=== PATIENT | female | born 1990 | race Caucasian/White ===

== ENCOUNTER → 2017-12-27 16:28 | Outpatient (CLI) | payer BC, OTHER, SELFPAY ==
--- NOTE | 2017-12-27 16:33 | XR_ITS ---
XR wrist RT min 3V HISTORY wrist pain ITS.REASON: ganglion cyst ORDERING PHYSICIAN: Kirit Jordan MD PATIENT AGE: 27 years Comparison: None FINDINGS: No fracture or dislocation. No lytic or blastic change. There is normal mineralization.. The joint spaces are well-preserved. No significant degenerative/arthritic changes. No erosive changes evident.. IMPRESSION: Negative wrist
== END ==
PROVIDERS: PCP Family Medicine; Visit Provider Orthopaedic Surgery
DX: M67.431 Ganglion, right wrist (principal)
CPT/HCPCS: 73110

== ENCOUNTER 2020-03-15 19:54 | Emergency (ER) | payer BC, SELFPAY ==
[2020-03-15 20:00] VITALS: BP 116/86; PULSE 88; RESP 19; TEMP 36.9; O2SAT 99; BMI 27.4
[2020-03-15 20:09] VITALS: BP 116/86; PULSE 88; RESP 19; TEMP 36.9; O2SAT 99
--- NOTE | 2020-03-15 20:15 | HMH.EDUTC ---
[facility] [place] Clinical Impression: Encounter for laboratory testing for COVID-19 virus Disposition: Home, Self-Care Condition on Discharge: Good Instructions: DI for COVID-19 (Suspected or Confirmed ), Coronavirus Disease 2019, Preventing the Spread of Coronavirus Discharge Instructions Additional Instructions: *Monitor Temp, Over the counter Motrin or Tylenol as directed/as needed Tylenol every 4 hours and Motrin every 6 hours (as long as your family doctor has told you that you can take it) for fever or pain. and straight to ER if unable to lower temp less than 101.0 after medication given Take medication as prescribed Follow up IMMEDIATELY for new or worsening symptoms or no Noticeable improvement over the next 48-72 hours. 911 for difficulty breathing or swallowing You were tested for today for COVID19 your test result should be back in the next 24-48 hours, you may call to the [facility] to see if your test results are back in the next 48 hours [phone] [facility] hours are 9am-9pm You was given a handout with instructions for Self Quarantine and Self isolation for while you wait on test results and what to do if they are positive If you are positive the Health Dept will be contacting you also Prescriptions: Azithromycin [Z-Matthias 250mg Tab] 250 mg PO DIRECTED #6 tab Transmission Status: Pending to [facility] Referrals: Charles Powers MD [Primary Care Provider] - As needed Time of Disposition: 20:20 Medical Decision Making - Stefano Inquiry Pt receiving controlled substance: No Stefano was queried for this patient: No Vital Signs: 03/15/20 20:00 Temperature 98.4 F Temperature Source Oral Pulse Rate [Right Brachial] 88 Respiratory Rate 19 Blood Pressure [Right Arm] 116/86 Blood Pressure Mean [Right Arm] 96 Blood Pressure Source [Right Arm] Automatic Cuff Blood Pressure Position [Right Arm] Sitting 02 Sat by Pulse Oximetry 99 Oxygen Delivery Method Room Air Orders (Tests/Meds): ORDERS Category Date Time Status Covid-19 Nasal PCR ([facility]) Routine Lab 03/15/20 19:57 Ordered [facility] [place] HPI - General Stated complaint: Covid 19 Test Time Seen by Provider: 03/15/20 20:15 Mode of Arrival: Ambulatory Source of Information: Patient Limitations: No Limitations Description of Symptoms (Recalled from Triage Doc. by RN): PATIENT REQUESTING COVID TEST. C/O SINUS PRESSURE, CONGESTION, AND NO SMELL X 1 WEEK. STATES HER CHILDREN WERE EXPOSED TO COVID AT [facility] Symptoms (Recalled from RN notes): Yes Resp Symptoms (Recalled from RN notes): No Skin Symptoms (Recalled from RN notes): No MS Symptoms (Recalled from RN notes): No Functional Status (Recalled from RN notes): WNL - History of Present Illness Provider Complaint: Patient states that she has been having sinus pain and pressure for over a week States that she thought she may have been getting a sinus infection states that she noticed earlier when she was changing a diaper that she was not able to smell anything States that she has not been exposed to COVID that she is aware of but her children was - Related Data Home Medications Medication Instructions Recorded Confirmed doxycycline hyclate 100 mg capsule 100 mg PO DAILY 11/03/18 11/03/18 Previous Rx's Medication Instructions Recorded Mupirocin [Bactroban 2% Ointment 1 applicatio TP TID 7 Days #1 tube 10/31/18 22gm tube] clindamycin HCL [Clindamycin HCl 300 mg PO Q6 10 Days #40 cap 10/31/18 300mg Cap] ciprofloxacin HCl 500 mg tablet 500 mg PO BID 5 Days #10 tab 03/12/19 Azithromycin [Z-Matthias 250mg Tab] 250 mg PO DIRECTED #6 tab 03/15/20 Allergies Allergy/AdvReac Type Severity Reaction Status Date / Time Sulfa (Sulfonamide Allergy Mild Verified 11/03/18 09:55 Antibiotics) [SULFA (SULFONAMIDE ANTIBIOTICS)] - Worker's Comp Is this a Worker's Comp case?: No H History - Hepatitis A Screen Drug use history?: No High risk sexual behav
--- NOTE | 2020-03-16 16:29 | PC.NURSE ---
NOTIFIED OF POSITIVE COVID TEST AT THIS TIME
== END 2020-03-15 20:19 | disposition home or self-care (01) ==
PROVIDERS: Emergency Provider Nurse Practitioner; PCP Family Medicine
DX: U07.1 COVID-19 (principal); Z88.2 Allergy status to sulfonamides
CPT/HCPCS: 99202; G0463; U0003

== ENCOUNTER → 2020-08-28 10:07 | Outpatient (CLI) | payer BC, SELFPAY ==
[2020-08-28 10:27] LABS: Basophils # 0.1 K/mm3 (0-0.2); Basophils % 0.9 % (0.1-2.0); Eosinophils # 0.1 K/mm3 (0.0-0.4); Hematocrit 36.2 % (37.0-47.0); Hemoglobin 12.2 g/dL (12.2-16.2); Mean Corpuscular HGB Conc 33.6 g/dL (31.8-35.4); Mean Corpuscular Hemoglobin 29.5 pg (27.0-31.2); Mean Corpuscular Volume 87.8 fl (81-99); Mean Platelet Volume 7.6 fl (7.4-10.4); Monocytes # 0.4 K/mm3 (0.1-1.0); Monocytes % 5.9 % (1.7-9.3); Neutrophils # 4.7 K/mm3 (1.8-7.8); Neutrophils % 64.2 % (37.0-80.0); Platelet Count 275 K/mm3 (142-424); Red Blood Count 4.12 M/mm3 (4.20-5.40); Red Cell Distribution Width 12.7 % (11.5-17.5); White Blood Count 7.3 K/mm3 (4.8-10.8)
[2020-08-28 11:08] LABS: Chloride 106 mmol/L (98-107); Potassium 5.1 mmoL/L (3.5-5.1); Sodium 141 mmol/L (136-145)
[2020-08-28 11:10] LABS: Alanine Aminotransferase 15 U/L (12-78); Aspartate Amino Transferase 19 U/L (14-36); Blood Urea Nitrogen 6 mg/dl (7-17); Estimated Glomerular Filt Rate 119 ml/min (>60); GFR (African American) 144 ML/MIN (>60)
[2020-08-28 11:11] LABS: Albumin Level 4.2 g/dl (3.5-5.0); Albumin/Globulin Ratio 1.6 (1.1-1.8); Alkaline Phosphatase 85 U/L (38-126); Anion Gap 12.1 mEq/L (5-15); Bilirubin,Total 0.5 mg/dl (0.2-1.3); Calcium 9.5 mg/dl (8.4-10.2); Carbon Dioxide 28 mmol/L (22.0-30.0); Globulin 2.7 g/dL (1.3-3.2); Glucose 95 mg/dl (74-100); Lipase 37 U/L (23-300); Total Protein,Serum 6.9 g/dl (6.3-8.2)
== END ==
PROVIDERS: Visit Provider Internal Medicine Adolescent Medicine
DX: R10.11 Right upper quadrant pain (principal)
CPT/HCPCS: 36415; 80053; 83690; 85025

== ENCOUNTER → 2020-08-29 08:42 | Outpatient (CLI) | payer BC, SELFPAY ==
--- NOTE | 2020-08-29 08:46 | US_ITS ---
PROCEDURE: US ABDOMEN LIMITED CLINICAL INDICATION: RUQ PAIN COMPARISON: US RUQ US RUQ-(ABD LTD)1ORGAN/QUAD/FU from 07/25/2015 FINDINGS: PANCREAS: Unremarkable. No obvious mass or abnormal fluid collection. 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 The larger lesion is septated. There is appropriate direction of blood flow within a non dilated portal vein. RIGHT KIDNEY: Unremarkable. Normal size and echogenicity. No hydronephrosis GALLBLADDER: No gallstones, gallbladder wall thickening, pericholecystic fluid, or biliary dilatation. IMPRESSION: Unremarkable gallbladder ultrasound. Hepatic cysts Dictated by: Nathan Zhang MD 08/29/2020 15:40 Nathan Zhang MD in [place] 08/29/2020 15:40
== END ==
PROVIDERS: PCP Internal Medicine Adolescent Medicine; Visit Provider Internal Medicine Adolescent Medicine
DX: R10.11 Right upper quadrant pain (principal)
CPT/HCPCS: 76705

== ENCOUNTER 2022-03-07 13:47 | Emergency (ER) | payer BC, SELFPAY ==
--- NOTE | 2022-03-07 14:17 | EXP.UTC ---
Discharge Plan Disposition Patient Disposition: Home, Self-Care Condition: Good Prescriptions Prescriptions: New diphenhydramine HCl [Diphenhydramine HCl] 25 mg capsule 25 mg PO Q6HP PRN (Reason: Itching) Qty: 30 0RF loratadine 10 mg tablet 10 mg PO DAILY Qty: 30 0RF No Action norgestimate-ethinyl estradiol 0.25-35 mg-mcg tablet 1 tab PO amoxicillin 500 mg capsule 500 mg PO Q12H 10 Days Qty: 20 0RF ondansetron 8 mg tablet,disintegrating 8 mg PO Q8H PRN (Reason: nausea and vomiting) Qty: 30 0RF Referrals Follow up/Referrals: Charles Negron MD [Primary Care Provider] - See instructions Activity Restrictions/Add. Instructions Additional Instructions/Restrictions: Drink plenty of fluids. Take tylenol for pain or fever. Follow up with your regular doctor. GO TO THE ER FOR ANY WORSENING SYMPTOMS Clinical Impressions Clinical Impression: Bronchitis Qualifiers: Weeks of gestation: 40 weeks Qualified Code(s): Z3A.40 - 40 weeks gestation of Instructions Patient Instructions: DI for Acute Bronchitis, Diphenhydramine Discharge ED Provider: Luis F Avendaño [facility] General Stated complaint: Cough Time Seen by Provider: 03/07/22 14:17 History of Present Illness Provider Complaint: She is here requesting something to help her cough. She denies that she feels bad. She states that she has had a productive cough with clear sputum for the past several days that is keeping her awake at night. Related Data Home Medications Medication Instructions Recorded Confirmed norgestimate 0.25 mg-ethinyl 1 tab PO 07/14/20 01/09/21 estradiol 35 mcg tablet Previous Rx's Medication Instructions Recorded amoxicillin 500 mg capsule 500 mg PO Q12H otitis media 10 01/09/21 days #20 caps ondansetron 8 mg disintegrating 8 mg PO Q8H PRN nausea and 07/23/21 tablet vomiting #30 tabs diphenhydramine HCl 25 mg capsule 25 mg PO Q6HP PRN Itching #30 caps 03/07/22 loratadine 10 mg tablet 10 mg PO DAILY #30 tabs 03/07/22 Allergies Allergy/AdvReac Type Severity Reaction Status Date / Time Sulfa (Sulfonamide Allergy Mild Verified 01/09/21 17:51 Antibiotics) [SULFA (SULFONAMIDE ANTIBIOTICS)] [facility] Disclaimer: The information contained in this section may have been updated after the patient was seen, as this information can be updated by other users. Medical History Hypertension Urinary tract infection Surgical History History of section Social History Smoking Status: Never smoker alcohol intake: current current occupational status: other Travel in the last 8 weeks: None ROS Obtained: Yes All systems reviewed & no additional complaints except as documented Constitutional Constitutional: Denies chills and Denies fever(s) Eyes Eyes: Denies eye discharge ENT Ears, Nose, Mouth, and Throat: Denies dizziness, Denies otalgia, Reports nasal congestion, Reports sinus pressure and Denies sore throat Cardiovascular Cardiovascular: Denies chest pain Respiratory Respiratory: Reports as per HPI, Denies shortness of breath, Reports chest congestion, Reports cough, Denies stridor and Denies wheezing Gastrointestinal Gastrointestingal: Denies abdominal pain, nausea or vomiting Musculoskeletal Musculoskeletal: Reports system reviewed and no additional complaints, except as documented and Denies arthralgias Integumentary/Breasts Skin/Breast: Denies rash Neurologic Neurologic: Denies dizziness and Denies paresthesias Allergic/Immunologic Allergic/Immunologic: Denies wheezing Physical Exam General General appearance: alert and in no apparent distress Head Head exam: atraumatic, normocephalic and normal inspection Eye Eye exam: Present normal appearance, PERRL and EOMI ENT E
[2022-03-07 14:25] VITALS: BP 140/81; PULSE 94; RESP 20; TEMP 36.5; O2SAT 97; BMI 34.9
[2022-03-07 15:10] VITALS: BP 140/81; PULSE 94; RESP 20; TEMP 36.5; O2SAT 97
== END 2022-03-07 15:13 | disposition home or self-care (01) ==
PROVIDERS: Emergency Provider Nurse Practitioner Family; PCP Internal Medicine Adolescent Medicine
DX: O26.893 Other specified pregnancy related conditions, third trimester (principal); J40 Bronchitis, not specified as acute or chronic; Z3A.40 40 weeks gestation of pregnancy
CPT/HCPCS: 99212; 99213; G0463

== ENCOUNTER 2023-02-04 16:10 | Emergency (ER) | payer BC, SELFPAY ==
--- OUTSIDE RECORDS SUMMARY | 2023-02-04 16:13 | XMS_ITS | Patient Health Record ---
Author Name Unknown Organization [facility] Address [address] [place] [address] Care Team Providers Care Case Monitor Name Role Phone Irma Norton Unavailable [phone] MariannaNichol mas Unavailable [phone] Results Component Value Reference Range Notes CBC (NO DIFF) Reviewed date:03/09/2022 12:03:56 PM Interpretation: Performing Lab: Notes/Report: WBC, CORRECTED 8.88 3.40-10.80 10*3/mm3 ERYTHROCYTES IN BLOOD BY AUTOMATED COUNT 3.94 3.77-5.28 10*6/mm3 HEMOGLOBIN (G/DL) IN BLOOD 11.0 12.0-15.9 g/dL HEMATOCRIT (%) BY AUTOMATED COUNT 33.7 34.0-46.6 % RBC MCV (FL) BY AUTOMATED COUNT 85.5 79.0-97.0 fL RBC MCH (PG) BY AUTOMATED COUNT 27.9 26.6-33.0 pg RBC MCHC (G/DL) BY AUTOMATED COUNT 32.6 31.5-35.7 g/dL RBC RDW (%) BY AUTOMATED COUNT 13.2 12.3-15.4 % RDW-SD 40.5 37.0-54.0 fl MEAN PLATELET VOLUME (FL) BY AUTOMATED COUNT 10.6 6.0-12.0 fL PLATELETS BY AUTOMATED COUNT 224 140-450 10*3/mm3 [address] [place] [address] Test Performed by [facility] PRE-ECLAMPSIA PANEL Reviewe
--- NOTE | 2023-02-04 16:28 | EXP.UTC ---
Discharge Plan Disposition Patient Disposition: Home, Self-Care Condition: Good Prescriptions Prescriptions: New amoxicillin [amoxicillin] 875 mg tablet 875 mg PO Q12H Qty: 20 0RF benzonatate [benzonatate] 100 mg capsule 100 mg PO TIDP PRN (Reason: Cough) Qty: 30 0RF methylprednisolone 4 mg Tablets,Dose Pack 4 mg PO DIRECTED Qty: 21 0RF guaifenesin [Mucinex] 600 mg tablet extended release 12hr 600 - 1,200 mg PO BIDP PRN (Reason: Congestion) Qty: 30 0RF No Action norgestimate-ethinyl estradiol 0.25-35 mg-mcg tablet 1 tab PO DAILY loratadine 10 mg tablet 10 mg PO DAILY Qty: 30 0RF Referrals Follow up/Referrals: Charles Negron MD [Primary Care Provider] - See instructions Activity Restrictions/Add. Instructions Additional Instructions/Restrictions: Drink plenty of fluids. Take tylenol or ibuprofen for pain or fever. Take the medications as directed. Follow up with your regular doctor. GO TO THE ER FOR ANY WORSENING SYMPTOMS Clinical Impressions Clinical Impression: Bronchitis, Otitis media Instructions Patient Instructions: Acute Bronchitis, DI for Acute Bronchitis Discharge ED Provider: Luis F Avendaño [facility] General Stated complaint: cough, ear ache Time Seen by Provider: 02/04/23 16:28 History of Present Illness Provider Complaint: She states that for the past 5 days she has bilateral ear pain, sinus congestion, sore throat, and chest congestion. Related Data Home Medications Medication Instructions Recorded Confirmed norgestimate 0.25 mg-ethinyl 1 tab PO DAILY 07/14/20 02/04/23 estradiol 35 mcg tablet Previous Rx's Medication Instructions Recorded loratadine 10 mg tablet 10 mg PO DAILY #30 tabs 03/07/22 amoxicillin 875 mg tablet 875 mg PO Q12H #20 tabs 02/04/23 benzonatate 100 mg capsule 100 mg PO TIDP PRN Cough #30 caps 02/04/23 guaifenesin 600 mg tablet, 600 - 1,200 mg PO BIDP PRN 02/04/23 extended release 12 hr (Mucinex) Congestion #30 tabs methylprednisolone 4 mg tablets in 4 mg PO DIRECTED #21 tabs 02/04/23 a dose pack Allergies Allergy/AdvReac Type Severity Reaction Status Date / Time Sulfa (Sulfonamide Allergy Mild Verified 02/04/23 17:01 Antibiotics) [SULFA (SULFONAMIDE ANTIBIOTICS)] [facility] Disclaimer: The information contained in this section may have been updated after the patient was seen, as this information can be updated by other users. Medical History Hypertension Urinary tract infection Surgical History History of section Social History Smoking Status: Never smoker alcohol intake: current current occupational status: other Travel in the last 8 weeks: None ROS Obtained: Yes All systems reviewed & no additional complaints except as documented Constitutional Constitutional: Reports poor appetite Eyes Eyes: Reports system reviewed and no additional complaints, except as documented ENT Ears, Nose, Mouth, and Throat: Reports as per HPI Cardiovascular Cardiovascular: Reports system reviewed and no additional complaints, except as documented and Denies chest pain Respiratory Respiratory: Denies shortness of breath, Reports chest congestion, Reports cough, Denies stridor and Denies wheezing Gastrointestinal Gastrointestingal: Reports system reviewed and no additional complaints, except as documented; Denies abdominal pain, diarrhea or vomiting Musculoskeletal Musculoskeletal: Reports system reviewed and no additional complaints, except as documented and Denies arthralgias Integumentary/Breasts Skin/Breast: Reports system reviewed and no additional complaints, except as documented and Denies rash Neurologic Neurologic: Denies paresthesias Allergic/Immunologic Allergic/Immunologic: Denies wheezing Physical Exam G
[2023-02-04 16:30] VITALS: BP 146/90; PULSE 79; RESP 18; TEMP 36.7; O2SAT 100; BMI 33.6
[2023-02-04 17:35] VITALS: BP 146/90; PULSE 79; RESP 18; TEMP 36.7; O2SAT 100
== END 2023-02-04 17:35 | disposition home or self-care (01) ==
PROVIDERS: Emergency Provider Nurse Practitioner Family; PCP Internal Medicine Adolescent Medicine
DX: J20.9 Acute bronchitis, unspecified (principal); H66.93 Otitis media, unspecified, bilateral; R50.9 Fever, unspecified; R07.0 Pain in throat; R09.89 Other specified symptoms and signs involving the circulatory and respiratory systems; R09.81 Nasal congestion; R05.9 Cough, unspecified; I10 Essential (primary) hypertension
CPT/HCPCS: 99212; 99214; G0463

== ENCOUNTER 2023-03-09 17:18 | Outpatient (CLI) | payer BC, SELFPAY ==
--- NOTE | 2023-03-09 | XR_ITS ---
PROCEDURE INFORMATION: Exam: XR Right Ribs with PA Chest Exam date and time: 03/09/2023 5:21 PM Age: 32 years old Clinical indication: Chest wall pain; Right; Additional info: Cough, right sided chest pain TECHNIQUE: Imaging protocol: Radiologic exam of the right ribs with PA chest. Views: 3 views COMPARISON: No relevant prior studies available. FINDINGS: Lungs: Unremarkable. No consolidation. Pleural spaces: Unremarkable. No pleural effusion. No pneumothorax. Heart/Mediastinum: Unremarkable. No cardiomegaly. Bones/joints: No displaced rib fracture. IMPRESSION: 1. No acute findings. 2. No displaced rib fracture.
== END 2023-03-09 23:59 ==
LOC: RAD 17:21
PROVIDERS: PCP Internal Medicine Adolescent Medicine; Visit Provider Nurse Practitioner Family
DX: R05.3 Chronic cough (principal); R07.89 Other chest pain
CPT/HCPCS: 71101

== ENCOUNTER 2024-07-30 09:36 | Inpatient (IN) | payer BC, SELFPAY ==
[2024-07-30 09:47] LABS: Appearance,Urine CLOUDY (Clear); Blood, Urine TRACE-L (Negative); Color,Urine YELLOW (Yellow); Glucose,Urine (UA) Negative (Negative); Ketones,Urine Negative (Negative); Leukocyte Esterase,Urine Negative (Negative); Microscopic, Urine URINE MICROSCOPIC (MICROSCOPIC); Nitrate,Urine Negative (Negative); Protein,Urine Negative (Negative); Specific Gravity, Urine 1.015 (1.005-1.030)
[2024-07-30 09:50] VITALS: BP 122/81; PULSE 81; O2SAT 100
--- NOTE | 2024-07-30 09:52 | ED_ITS ---
Discharge Plan Disposition Patient Disposition: Admitted Discharge ED Provider: Cullen Brownlee General Adult HPI General Chief complaint: Abdominal Pain Stated complaint: right abd pain up to R.shoulder gallbladder hist. Time Seen by Provider: 07/30/24 09:38 History of Present Illness HPI narrative: Patient is a 34-year-old female with no chronic comorbidities section x 2 abdominal surgical history presents emerged part for evaluation of right upper quadrant abdominal pain. She has had episodes of this before however the most recent timeline is subacute over the last for several weeks. She has had intermittent right upper quadrant abdominal pain radiating through to her shoulder blade with associated nausea. It is worse with taking in a deep breath. The frequency has increased over the last couple of weeks and last night her typical regimen is applying heat pad did not improve her pain at all. It is currently moderate to severe in intensity right upper quadrant causing her to present here for continued evaluation. Please note that above description of symptoms, in this electronic medical record under categorization of recalled from ER triage doctor by RN are reflective of an initial nursing assessment, however, is not reflective of my full history and physical exam that was personally taken and clarified. Consequentially, this preceding description of symptoms, which may include the patient's categorized chief complaint in the EMR, do not reflect my personal clinical impression, and the ultimate description of history of present illness and patient stated complaints should be deferred to this section of the note. Unless stated otherwise or congruent with this section of the note, additional signs, symptoms, or incongruence should be interpreted as inaccurate with my clinical impression. Related Data Home Medications ?Medication ?Instructions ?Recorded ?Confirmed tirzepatide (weight loss) 5 mg/0.5 5 mg SQ WEEKLY 07/30/24 07/30/24 mL subcutaneous pen injector (Zepbound) Allergies Allergy/AdvReac Type Severity Reaction Status Date / Time Sulfa (Sulfonamide Allergy Mild Swelling Verified 07/30/24 10:07 Antibiotics) (SULFA of (SULFONAMIDE ANTIBIOTICS)) Lip/Tongue/Throat [facility] Disclaimer: The information contained in this section may have been updated after the patient was seen, as this information can be updated by other users. Medical History Urinary tract infection Hypertension Surgical History (Updated 07/30/24 @ 10:06 by Marita Cantor RN) History of tubal ligation History of section Social History (Updated 07/30/24 @ 12:16 by Radha Tello RN) Smoking Status: Never smoker alcohol intake: current alcohol intake frequency: holidays/special occasions only current occupational status: employed Travel in the last 8 weeks?: None Have you lived/traveled outside US in past 30 days?: No Contact w/someone who lives/traveled outside US past 30 days?: No Exposure to someone with infectious disease in past 14 days?: No Do you have a fever (greater than 100.4 F or 38 C)?: No Have you tested positive for COVID-19?: No Exposed to someone with COVID-19 in past 14 days?: No Do you have a sore throat?: No Do you have a cough?: No Do you have any weakness?: No Are you experiencing any nausea/vomitting?: No Do you have any diarrhea?: No Are you experiencing any unusual bleeding?: No Do you have any muscle aches/pain?: No Do you have any abdominal pain?: Yes Are you experiencing loss of taste or smell?: No Other Medical History Have you received the Flu Vaccine for this season: No Have you received the Pneumonia Vaccine: No ROS Obtained: Yes Systems reviewed as appropriate & no additional complaints except as documented Physical Exam General General appearance: alert and in no apparent distress Head Head exam: atraumatic and normocephalic Eye Eye exam: Present PERRL and EOMI ENT ENT exam: Present mucous membranes moist Neck Neck exam: Present normal inspection Chest Chest inspection: Present normal inspection and symmetric chest wall rise Respiratory Respiratory exam: Present normal lung sounds bilaterally; Absent respiratory distress Cardiovascular Cardiovascular exam: Present regular rate and normal rhythm Abdominal Exam Abdominal exam: Present soft and tenderness (Right upper quadrant) Extremities Exam Extremities exam: Present normal inspection Neurological Exam Neurological exam: Present alert Psychiatric Psychiatric exam: Present normal affect Skin Skin exam: Present warm and dry Medical Decision Making Medical Records Screening: Per USPSTF and CDC recommendations, given the prevalence of disease in our region, it is our hospital?s policy to screen for HIV and viral Hepatitis for all patients aged 18 and over and those with ongoing risk factors. Stefano Inquiry Pt receiving controlled substance: No Vital Signs: 07/30/24 09:50 07/30/24 10:00 07/30/24 10:00 Temperature 97.7 F Temperature Source Oral Pulse Rate 81 78 Pulse Rate [Right Brachial] 79 Respiratory Rate 18 Blood Pressure 122/81 Blood Pressure [Right Arm] 122/81 Blood Pressure Mean [Right Arm] 94 02 Sat by Pulse Oximetry 100 100 100 Oxygen Delivery Method Room Air 07/30/24 12:02 Temperature 97.7 F Temperature Source Pulse Rate 79 Pulse Rate [Right Brachial] Respiratory Rate 18 Blood Pressure 122/81 Blood Pressure [Right Arm] Blood Pressure Mean [Right Arm] 02 Sat by Pulse Oximetry Oxygen Delivery Method Room Air Lab Data Lab Results 07/30/24 09:43: Urine Color Yellow, Urine Appearance Cloudy, Urine pH 6.0, Ur Specific [place] 1.015, Urine Protein Negative, Urine Glucose (UA) Negative, Urine Ketones Negative, Urine Blood Trace-l, Urine Nitrate Negative, Urine Bilirubin 1+ A, Urine Urobilinogen 1.0, Ur Leukocyte Esterase Negative, Urine RBC Occasional, Urine WBC None, Ur Squamous Epith Cells 50-100, Urine Bacteria 2+ 07/30/24 09:53: WBC 6.2, RBC 4.16 L, Hgb 12.8, Hct 36.1 L, MCV 86.8, MCH 30.8, M CHC 35.5 H, RDW 13.0, Plt Count 244, MPV 10.1, Neut % (Auto) 72.4, Lymph % (Auto) 18.3, [place] % (Auto) 7.1, Eos % (Auto) 1.6, Baso % (Auto) 0.3, Neut # (Auto) 4.5, Lymph # (Auto) 1.1, [place] # (Auto) 0.4, Eos # (Auto) 0.1, Baso # (Auto) 0.0, Sodium 140, Potassium 4.2, Chloride 108 H, Carbon Dioxide 27, Anion Gap 9.2, BUN 7, Creatinine 0.50 L, Estimated Creat Clear 202, Estimated GFR 143, Est GFR ( Amer) 173, Glucose 104 H, Calcium 8.8, Total Bilirubin 1.8 H, D irect Bilirubin 1.1 H, AST 614 H*, ALT 576 H*, Alkaline Phosphatase 180 H, Troponin I < 0.01, Total Protein 6.4, Albumin 4.2, Globulin 2.2, A lbumin/Globulin Ratio 1.9 H, Triglycerides 87, Cholesterol 134 L, LDL Cholesterol Direct 62.81 L, VLDL Cholesterol 17, HDL Cholesterol 44, Cholesterol/HDL Ratio 3.0, Lipase 93084 H, Serum HCG, Qual Negative 07/30/24 09:53 07/30/24 09:53 Orders (Tests/Meds): ED MEDICATIONS Generic Name Dose Route Start Last Admin Trade Name María Elena PRN Reason Stop Dose Admin Acetaminophen 650 mg 07/30/24 11:23 Acetaminophen 325mg Tab PO 08/29/24 11:22 Q4HP PRN Fever or Mild Pain (1-3) Lactated Ringer's 1,000 mls @ 100 mls/hr 07/30/24 11:30 Lactated Ringer's 1000 Ml Bag IV 08/29/24 11:29 .Q10H EDIE Ketorolac Tromethamine 30 mg 07/30/24 11:23 Ketorolac 30mg/Ml Vial IV 08/04/24 11:22 Q6HP PRN Moderate Pain (4-6) Morphine Sulfate 2 mg 07/30/24 11:23 Morphine 2mg/Ml Syringe IV 08/29/24 11:22 Q2HP PRN Moderate Pain (4-6) Morphine Sulfate 4 mg 07/30/24 11:29 Morphine 4mg/Ml Syringe IV 08/29/24 11:28 Q4HP PRN Severe Pain (7-10) Ondansetron HCl 4 mg 07/30/24 11:23 Ondansetron 4mg/2ml Vial IV 08/29/24 11:22 Q8HP PRN Nausea Sodium Chloride 10 ml 07/30/24 10:34 07/30/24 10:34 Sodium Chloride 0.9% 10ml Syr (Rad Only) IV 08/29/24 10:33 10 ml NEEDED PRN Administration Maintain IV Site Discontinued Medications Generic Name Dose Route Start Last Admin Trade Name María Elena PRN Reason Stop Dose Admin Piperacillin Sod/Tazobactam 100 mls @ 200 mls/hr 07/30/24 11:22 07/30/24 11:23 Sod 4.5 gm/ Sodium Chloride IV 07/30/24 11:51 200 mls/hr ONCE ONE Administration Iopamidol 75 ml 07/30/24 10:34 07/30/24 10:34 Iopamidol-370 (76%);100ml Bottle IV 07/30/24 10:35 75 ml ONCE ONE Administration Ketorolac Tromethamine 30 mg 07/30/24 09:51 07/30/24 09:57 Ketorolac 30mg/Ml Vial IV 07/30/24 09:52 30 mg ONCE ONE Administration Morphine Sulfate 4 mg 07/30/24 09:51 07/30/24 11:35 Morphine 4mg/Ml Syringe IV 07/30/24 09:52 Not Given ONCE ONE Ondansetron HCl 4 mg 07/30/24 09:51 07/30/24 09:57 Ondansetron 4mg/2ml Vial IV 07/30/24 09:52 4 mg ONCE ONE Administration ORDERS Category Date Time Status CT abdomen pelvis w con Stat Cat Scan 07/30/24 09:52 Completed GI consult [Consult to Gastroenterology] [CONS] Routine Cons 07/30/24 10:20 Active General Surgery Consult [Consult to General Surgery] [ Cons 07/31/24 07:10 Ordered CONS] Routine POCUS Point of Care (ER Only) Stat Exams 07/30/24 09:40 Completed Bilirubin,Direct Stat Lab 07/30/24 09:53 Completed CBC w/Auto Diff [Complete Blood Count Auto Diff] Stat Lab 07/30/24 09:53 Completed CMP [Comprehensive Metabolic Panel] Stat Lab 07/30/24 09:53 Completed Complete Blood Count Auto Diff AMLAB Lab 07/31/24 06:00 Ordered Complete Blood Count Auto Diff AMLAB Lab 08/01/24 06:00 Ordered Complete Blood Count Auto Diff AMLAB Lab 08/02/24 06:00 Ordered Complete Blood Count Auto Diff AMLAB Lab 08/03/24 06:00 Ordered Complete Blood Count Auto Diff AMLAB Lab 08/04/24 06:00 Ordered Comprehensive Metabolic Panel AMLAB Lab 07/31/24 06:00 Ordered Comprehensive Metabolic Panel AMLAB Lab 08/01/24 06:00 Ordered Comprehensive Metabolic Panel AMLAB Lab 08/02/24 06:00 Ordered Comprehensive Metabolic Panel AMLAB Lab 08/03/24 06:00 Ordered Comprehensive Metabolic Panel AMLAB Lab 08/04/24 06:00 Ordered HCG Qualitative, Serum Stat Lab 07/30/24 09:53 Completed HIV Combo Routine Lab 07/30/24 09:53 Received Hepatitis C Ab Qual. W/ RFX Routine Lab 07/30/24 09:53 Received Lipase Stat Lab 07/30/24 09:53 Completed Lipid Panel Routine Lab 07/30/24 09:53 Completed Magnesium AMLAB Lab 07/31/24 06:00 Ordered Magnesium AMLAB Lab 08/01/24 06:00 Ordered Magnesium AMLAB Lab 08/02/24 06:00 Ordered Magnesium AMLAB Lab 08/03/24 06:00 Ordered Magnesium AMLAB Lab 08/04/24 06:00 Ordered Trop I [Troponin I] Stat Lab 07/30/24 09:53 Completed UA [Urinalysis and Microscopic] Stat Lab 07/30/24 09:43 Completed Urine Culture Stat Micro 07/30/24 09:43 Received ECG Data Tracing #1: Independently interpreted by me rate is 66, rhythm is regular, axis is normal, no ST elevation in anatomical contiguous leads, QTc 410. Medical Decision Narrative: In summary patient is a 34-year-old female past medical history described above presents emerged part for evaluation of right upper quadrant abdominal pain. Patient is hemodynamically stable and nontoxic-appearing upon arrival, afebrile with tenderness in the right upper quadrant. My concern for hepatobiliary pathology is high. [id number] ultrasound at bedside does not show overt pericholecystic fluid however there does appear to be some sludge in the gallbladder and most importantly common bile duct is dilated significantly greater than 6 mm. Differential diagnosis includes choledocholithiasis, compressive lesion, pancreatitis, among others. Workup will be conducted with hematologic labs, urinalysis, EKG, CT abdomen pelvis IV contrast. Initial interventions include multimodal pain control. Hematologic labs reviewed by me is no significant leukocytosis or anemia, no BUCK. There is transaminitis, direct hyperbilirubinemia, significant elevation of lipase consistent with gallstone pancreatitis. No concern for sepsis currently and patient is largely euvolemic so full sepsis fluids will not be administered. Given this patient was started on Zosyn and the case was discussed with GI regarding management they will likely undergo ERCP tomorrow. Case discussed with hospital medicine regarding management they will meet the patient their service for continued evaluation at this time. Indication: Abdominal pain Identified structures: -Gallbladder -Gallbladder wall -Common bile duct -Liver Findings: Sonographic Sarabia sign: Present Sludge present Pericholecystic fluid: Absent Maximal GB wall thickness (3 mm): [normal is </= 3mm] [Normal/abnormal] Common bile duct width (mm): Greater than 6 mm abnormal Impression: Concern for choledocholithiasis Images were saved to permanent archive The study was technically adequate CPT 97797-55 This study was performed by me, and I personally interpreted all images/videos. Based on my clinical judgement, these images were adequate and did necessitate further imaging. Critical Care Critical Care Time Critical Care Time: Yes Attestation: On 07/30/24, the high probability of a clinically significant, sudden or life threatening deterioration of the following system(s) required my full and direct attention, intervention and personal management. The time I documented below is in addition to time spent performing reported procedures but includes the following listed in this critical care notation. Total Time Total Critical Care Time: 35
--- NOTE | 2024-07-30 09:52 | CT_ITS ---
PROCEDURE INFORMATION: Exam: CT Abdomen And Pelvis With Contrast Exam date and time: 07/30/2024 10:28 AM Age: 34 years old Clinical indication: Abdominal pain; Localized; Right upper quadrant (ruq); Prior surgery; Surgery date: 6+ months; Surgery type: 2 c-sections; Additional info: Dilated cbd on pocus, ruq pain TECHNIQUE: Imaging protocol: Computed tomography of the abdomen and pelvis with contrast. Radiation optimization: All CT scans at this facility use at least one of these dose optimization techniques: automated exposure control; mA and/or kV adjustment per patient size (includes targeted exams where dose is matched to clinical indication); or iterative reconstruction. Contrast material: ISOVUE; Contrast volume: 75 ml; Contrast route: IV; COMPARISON: US ABDOMEN LIMITED 08/29/2020 9:21 AM FINDINGS: Liver: Cystic lesions in the left lobe of the liver Gallbladder and biliary ducts: Distended gallbladder. No pericholecystic fluid. Pancreas: Mild pancreatic edema. Spleen: Normal. No splenomegaly. Adrenal glands: Normal. No mass. Kidneys and ureters: Normal. No hydronephrosis. Stomach and bowel: Unremarkable. No obstruction. No mucosal thickening. Appendix: No evidence of appendicitis. Intraperitoneal space: Unremarkable. No free air. No significant fluid collection. Vasculature: Unremarkable. No abdominal aortic aneurysm. Lymph nodes: Unremarkable. No enlarged lymph nodes. Urinary bladder: Unremarkable as visualized. Reproductive: Unremarkable as visualized. Bones/joints: Unremarkable. No acute fracture. Soft tissues: Unremarkable. IMPRESSION: Gallbladder distension with pericholecystic fluid. No visible stones are appreciated. Findings are suspicious for acute gallbladder disease. In addition there appears to be edema of the pancreatic tail. Pancreatitis not excluded. Cystic lesions in the left lobe of the liver.
[2024-07-30 09:56] LABS: Bacteria,Urine 2+ /lpf; Bilirubin,Urine 1+ (Negative); RBC,Urine Occasional #/hpf (0-3); Squamous Epithelial Cell,Urine 50-100 #/hpf (0-5)
[2024-07-30] MEDS: ONDANSETRON 4MG/2ML VIAL 4 MG IV (09:57)
[2024-07-30] MEDS: KETOROLAC 30MG/ML VIAL 30 MG IV ×2 (09:57→19:38)
[2024-07-30 09:59] LABS: Basophils % 0.3 % (0.1-2.0); Eosinophils # 0.1 Kmm3 (0.0-0.4); Eosinophils % 1.6 % (0.1-12.0); Hematocrit 36.1 % (37.0-47.0); Hemoglobin 12.8 g/dL (12.2-16.2); Immature Granulocytes # 0.02 10^3uL; Immature Granulocytes % 0.3 %; Lymphocytes # 1.1 K/mm3 (0.7-4.5); Lymphocytes % 18.3 % (10-50); Mean Corpuscular HGB Conc 35.5 g/dL (31.8-35.4); Mean Corpuscular Hemoglobin 30.8 pg (27.0-31.2); Mean Corpuscular Volume 86.8 fl (81-99); Mean Platelet Volume 10.1 fl (7.4-10.4); Monocytes # 0.4 K/mm3 (0.1-1.0); Monocytes % 7.1 % (1.7-9.3); Neutrophils # 4.5 K/mm3 (1.8-7.8); Neutrophils % 72.4 % (37.0-80.0); Nucleated Red Blood Cells # 0 10^3/uL; Nucleated Red Blood Cells % 0 %; Platelet Count 244 K/mm3 (142-424); Red Blood Count 4.16 M/mm3 (4.20-5.40); Red Cell Distribution Width-SD 40.8 fL; White Blood Count 6.2 K/mm3 (4.8-10.8)
[2024-07-30 10:00] VITALS: BP 122/81; PULSE 78; PULSE 79; RESP 18; TEMP 36.5; O2SAT 100; BMI 29.1
[2024-07-30 10:08] LABS: Bilirubin,Direct 1.1 mg/dl (0.0-0.4)
[2024-07-30 10:09] LABS: Alanine Aminotransferase 576 U/L (12-78); Albumin Level 4.2 g/dl (3.5-5.0); Albumin/Globulin Ratio 1.9 (1.1-1.8); Alkaline Phosphatase 180 U/L (38-126); Anion Gap 9.2 mEq/L (5-15); Aspartate Amino Transferase 614 U/L (14-36); Bilirubin,Total 1.8 mg/dl (0.2-1.3); Blood Urea Nitrogen 7 mg/dl (7-17); Calcium 8.8 mg/dl (8.4-10.2); Carbon Dioxide 27 mmol/L (22.0-30.0); Chloride 108 mmol/L (98-107); Creatinine Clearance Estimated 202 mL/min (50-200); Estimated Glomerular Filt Rate 143 ml/min (>60); GFR (African American) 173 ML/MIN (>60); Globulin 2.2 g/dL (1.3-3.2); Glucose 104 mg/dl (74-100); Potassium 4.2 mmoL/L (3.5-5.1); Sodium 140 mmol/L (136-145); Total Protein,Serum 6.4 g/dl (6.3-8.2)
--- NOTE | 2024-07-30 10:13 | ECG_ITS ---
APPROVED REPORT Exam: Resting ECG HR:66 bpm ECG Measurements Heart Rate 66 AXES NH 146 P 81 QRSd 92 QRS 87 QT 396 T 76 QTc 410 Conclusion SINUS RHYTHM WITH SINUS ARRHYTHMIA LOW QRS VOLTAGE IN PRECORDIAL LEADS [QRS DEFLECTION < 1.0 mV IN CHEST LEADS] Electronically signed by : MARIPOSA PONCE, 08/04/2024 12:29:46
[2024-07-30 10:19] LABS: HCG Qualitative, Serum Negative (Negative)
[2024-07-30 10:22] LABS: Troponin I < 0.01 ng/ml (0.00-0.034)
[2024-07-30] MEDS: IOPAMIDOL-370 (76%);100ML BOTTLE 75 ML IV (10:34)
[2024-07-30] MEDS: SODIUM CHLORIDE 0.9% 10ML SYR (RAD ONLY) 10 ML IV (10:34)
[2024-07-30 10:39] LABS: Lipase 14447 U/L (23-300)
[2024-07-30] MEDS: PIPERACILLIN/TAZO 4.5 GM in 0.9 % SODIUM CHLORIDE 100 ML IV (11:23)
--- NOTE | 2024-07-30 11:23 | EXP.HP ---
History of Present Illness *Admission Date: 07/30/24 *Reason for visit:: Abdominal pain *History of present illness: Phuong Correia is a 34-year-old female with no significant medical history presents with 3-week onset of intermittent RUQ abdominal pains with radiation to the right shoulder which worsened over the past day. Patient states his abdominal pains have been intermittent over the past weeks have usually self resolved, however last night it began but has not resolved and today which point patient presented to the ED. Endorses chills, but denies fevers, chest pains, diarrhea/constipation. Does endorse the fact that she was started Zepbound (GLP-1 agonist) in May 2024. Otherwise denies eating anything different, travel history, scorpion bite. Workup in the ED significant for transaminitis total bilirubin/AST/ALT/ALP 1.8/614/576/180. Lipase 14,447. WBC normal. CT abdomen/pelvis suggestive of cholecystitis and pancreatitis. ED discussed case with GI who is tentatively planning for ERCP in the morning. Case discussed with ED provider and she was made to admit patient for suspected choledocholithiasis, possible cholangitis, and pancreatitis. [facility] Disclaimer: The information contained in this section may have been updated after the patient was seen, as this information can be updated by other users. Medical History (Updated 07/30/24 @ 18:26 by Malick Francisco MD) Urinary tract infection Hypertension Surgical History (Updated 07/30/24 @ 10:06 by Marita Cantor RN) History of tubal ligation History of section Social History (Updated 07/30/24 @ 12:16 by Radha Tello RN) Smoking Status: Never smoker alcohol intake: current alcohol intake frequency: holidays/special occasions only current occupational status: employed Travel in the last 8 weeks?: None Have you lived/traveled outside US in past 30 days?: No Contact w/someone who lives/traveled outside US past 30 days?: No Exposure to someone with infectious disease in past 14 days?: No Do you have a fever (greater than 100.4 F or 38 C)?: No Have you tested positive for COVID-19?: No Exposed to someone with COVID-19 in past 14 days?: No Do you have a sore throat?: No Do you have a cough?: No Do you have any weakness?: No Are you experiencing any nausea/vomitting?: No Do you have any diarrhea?: No Are you experiencing any unusual bleeding?: No Do you have any muscle aches/pain?: No Do you have any abdominal pain?: Yes Are you experiencing loss of taste or smell?: No Other Medical History Have you received the Flu Vaccine for this season: No Have you received the Pneumonia Vaccine: No Meds Home Medications and Allergies Home Medications ?Medication ?Instructions ?Recorded ?Confirmed ?Type tirzepatide (weight loss) 5 mg/0.5 5 mg SQ WEEKLY 07/30/24 07/30/24 History mL subcutaneous pen injector ([employer]) New Prescriptions to Start Prescriptions: Allergies Allergy/AdvReac Type Severity Reaction Status Date / Time Sulfa (Sulfonamide Allergy Mild Swelling Verified 07/30/24 10:07 Antibiotics) (SULFA of (SULFONAMIDE ANTIBIOTICS)) Lip/Tongue/Throat Exam Data for Last 24 hours Vital signs and Labs for Last 24 Hours: Temp Pulse Resp BP Pulse Ox O2 Del Method 97.7 F 79 18 122/81 100 Room Air 07/30/24 10:00 07/30/24 10:00 07/30/24 10:00 07/30/24 10:00 07/30/24 10:00 07/30/24 10:00 Laboratory Results - last 24 hr 07/30/24 09:43: Urine Color Yellow, Urine Appearance Cloudy, Urine pH 6.0, Ur Specific [place] 1.015, Urine Protein Negative, Urine Glucose (UA) Negative, Urine Ketones Negative, Urine Blood Trace-l, Urine Nitrate Negative, Urine Bilirubin 1+ A, Urine Urobilinogen 1.0, Ur Leukocyte Esterase Negative, Urine RBC Occasional, Urine WBC None, Ur Squamous Epith Cells 50-100, Urine Bacteria 2+ 07/30/24 09:53: WBC 6.2, RBC 4.16 L, Hgb 12.8, Hct 36.1 L, MCV 86.8, MCH 30.8, MCHC 35.5 H, RDW 13.0, Plt Count 244, MPV 10.1, Neut % (Auto) 72.4, Lymph % (Auto) 18.3, [place] % (Auto) 7.1, Eos % (Auto) 1.6, Baso % (Auto) 0.3, Neut # (Auto) 4.5, Lymph # (Auto) 1.1, [place] # (Auto) 0.4, Eos # (Auto) 0.1, Baso # (Auto) 0.0, Sodium 140, Potassium 4.2, Chloride 108 H, Carbon Dioxide 27, Anion Gap 9.2, BUN 7, Creatinine 0.50 L, Estimated Creat Clear 202, Estimated GFR 143, Est GFR ( Amer) 173, Glucose 104 H, Calcium 8.8, Total Bilirubin 1.8 H, Direct Bilirubin 1.1 H, AST 614 H*, ALT 576 H*, Alkaline Phosphatase 180 H, Troponin I < 0.01, Total Protein 6.4, Albumin 4.2, Globulin 2.2, Albumin/Globulin Ratio 1.9 H, Lipase 85702 H, Serum HCG, Qual Negative I & O for Last 24 hours: Intake & Output 07/27/24 07/28/24 07/29/24 07/30/24 23:59 23:59 23:59 23:59 Weight 79.379 kg Constitutional Constitutional: no acute distress *Routine HEENT Exam Head: Present normocephalic Eye: Present EOMI and PERRL ENT: Present mucous membranes moist *Routine Neck Exam Neck: Present supple; Absent lymphadenopathy *Routine Respiratory Exam Respiratory: Present CTA bilaterally *Routine Cardiovascular Exam Cardiovascular: Present RRR *Routine Abdominal Exam Abdominal: Present soft, normoactive bowel sounds and tenderness Comments: RUQ abdominal tenderness to palpation. *Routine Rectal Exam Rectal:: deferred *Routine Genitalia Exam Genitalia:: deferred *Routine Extremities Exam Extremities: Absent cyanosis, clubbing or edema *Routine Skin Exam Skin: Present warm; Absent rash *Routine Neurological Exam Neurological: Present alert and oriented X3 Assessment and Plan *Assessment and plan (1) Choledocholithiasis: Status: Acute Category: Medical Code(s): K80.50 - Calculus of bile duct without cholangitis or cholecystitis without obstruction (2) Pancreatitis: Status: Acute Category: Medical Code(s): K85.90 - Acute pancreatitis without necrosis or infection, unspecified Plan Phuong Correia is a 34-year-old female with no significant medical history presents with 3-week onset of intermittent RUQ abdominal pains with radiation to the right shoulder which worsened over the past day. Patient states his abdominal pains have been intermittent over the past weeks have usually self resolved, however last night it began but has not resolved and today which point patient presented to the ED. Endorses chills, but denies fevers, chest pains, diarrhea/constipation. Does endorse the fact that she was started Zepbound (GLP-1 agonist) in May 2024. Otherwise denies eating anything different, travel history, scorpion bite. Workup in the ED significant for transaminitis total bilirubin/AST/ALT/ALP 1.8/614/576/180. Lipase 14,447. WBC normal. CT abdomen/pelvis suggestive of cholecystitis and pancreatitis. ED discussed case with GI who is tentatively planning for ERCP in the morning. Case discussed with ED provider and she was made to admit patient for suspected choledocholithiasis, possible cholangitis, and pancreatitis. #Suspected acute cholecystitis #Suspected choledocholithiasis #Possible acute cholangitis #Transaminitis #Acute pancreatitis ? Presents with 3 weeks of intermittent RUQ abdominal pains with radiation of the right shoulder, this episode not resolving on its own. Intermittent chills, but denies fevers. ? Grossly elevated LFTs on arrival total bilirubin/AST/ALT/ALP 1.8/614/576/180. Lipase 14,447. GGT 345. Lipid panel, calcium normal. WBC normal. ? No cholelithiasis identified on CT abdomen, but CBD was dilated on POCUS in the ED. ? It is very possible that a gallstone are still present in the distal CBD. ? Presentation complicated by starting of GLP-1 agonist in May 2024, likely contributing to pancreatitis. At this time, pancreatitis seems to be mostly related to underlying suspected gallstone pancreatitis. ? GI consulted in the ED, tentatively planning for ERCP in the morning. N.p.o. at midnight. ? General Surgery consulted for suspected acute cholecystitis, pending recommendations. ? Continue Zosyn empirically for cholecystitis, possible cholangitis. ? Follow-up RUQ ultrasound in the morning. ? Possible MRCP pending GI recommendations. ? Consider viral, mono panel if above workup is unremarkable. ? Follow-up with hepatitis panel. ? Continue IV LR at 100 mL/h. Full code DVT prophylaxis: Lovenox 40 mg
--- NOTE | 2024-07-30 11:40 | PC.NURSE ---
PT ADMITTED TO HOSPITALIST, ROOM 210. ALL STAFF NOTIFIED
[2024-07-30 11:43] LABS: Cholesterol 134 mg/dl (140-200); HDL Cholesterol 44 mg/dl (40-60); Triglycerides 87 mg/dl (30-150); VLDL Cholesterol 17 mg/dL (0-40)
[2024-07-30 12:00] VITALS: TEMP 36.8
[2024-07-30 12:02] VITALS: BP 122/81; PULSE 79; RESP 18; TEMP 36.5; O2SAT 100
[2024-07-30 12:02] LABS: Direct LDL Cholesterol 62.81 mg/dL (100-129)
--- NOTE | 2024-07-30 12:04 | PC.NURSE ---
arrived to floor from ED by w/c
--- NOTE | 2024-07-30 12:15 | HMH.PHAINT1 ---
Pharmacy Intervention Comments: MEDICATION RECONCILIATION COMPLETE USING EXTERNAL PHARMACY FILL HISTORY.
[2024-07-30 13:11] LABS: HIV Combo NEGATIVE (Negative)
[2024-07-30 13:14] LABS: Hepatitis C Ab Qual. W/ RFX NEGATIVE (Negative)
[2024-07-30] MEDS: MORPHINE 2MG/ML SYRINGE 2 MG IV (14:04)
[2024-07-30 15:49] LABS: Gamma Glutamyl Transpeptidase 345 U/L (12-43)
[2024-07-30 16:00] VITALS: BP 156/75; PULSE 89; RESP 22; TEMP 36.8; O2SAT 98
--- NOTE | 2024-07-30 16:03 | PC.NURSE ---
new admit today. medicated for pain x1 so far today. aox4, independent with ADL.
[2024-07-30] MEDS: PIPERCILLIN/TAZO 3.375 GM in 0.9 % SODIUM CHLORIDE 50 ML IV (19:38)
[2024-07-30 19:55] VITALS: BP 120/71; PULSE 83; RESP 18; TEMP 36.8; O2SAT 98
[2024-07-31] VITALS: BP 101/64; PULSE 68; RESP 18; TEMP 36.9; O2SAT 100
[2024-07-31] MEDS: LACTATED RINGERS 1000ML 1,000 ML 100 ML IV ×2 (00:02→10:20)
[2024-07-31] MEDS: ACETAMINOPHEN 325MG TAB 650 MG PO (00:02)
[2024-07-31 04:00] VITALS: BP 102/65; PULSE 83; RESP 15; TEMP 36.4; O2SAT 97; BMI 29.5
[2024-07-31] MEDS: PIPERCILLIN/TAZO 3.375 GM in 0.9 % SODIUM CHLORIDE 50 ML IV ×2 (04:54→11:58)
[2024-07-31 05:56] LABS: Albumin Level 3.1 g/dl (3.5-5.0); Chloride 110 mmol/L (98-107)
[2024-07-31 05:57] LABS: Potassium 3.4 mmoL/L (3.5-5.1); Sodium 139 mmol/L (136-145)
[2024-07-31 05:58] LABS: Basophils % 0.3 % (0.1-2.0); Eosinophils # 0.2 Kmm3 (0.0-0.4); Eosinophils % 2.7 % (0.1-12.0); Hematocrit 31.9 % (37.0-47.0); Immature Granulocytes # 0.02 10^3uL; Immature Granulocytes % 0.3 %; Lymphocytes # 1.6 K/mm3 (0.7-4.5); Lymphocytes % 23.2 % (10-50); Mean Corpuscular HGB Conc 34.8 g/dL (31.8-35.4); Mean Corpuscular Hemoglobin 30.2 pg (27.0-31.2); Mean Corpuscular Volume 86.9 fl (81-99); Mean Platelet Volume 10.5 fl (7.4-10.4); Monocytes # 0.6 K/mm3 (0.1-1.0); Neutrophils # 4.5 K/mm3 (1.8-7.8); Neutrophils % 65.5 % (37.0-80.0); Nucleated Red Blood Cells # 0 10^3/uL; Nucleated Red Blood Cells % 0 %; Platelet Count 210 K/mm3 (142-424); Red Blood Count 3.67 M/mm3 (4.20-5.40); Red Cell Distribution Width 12.9 % (11.5-17.5); Red Cell Distribution Width-SD 41.1 fL; White Blood Count 6.9 K/mm3 (4.8-10.8)
[2024-07-31 05:59] LABS: Alanine Aminotransferase 375 U/L (12-78); Albumin/Globulin Ratio 1.3 (1.1-1.8); Anion Gap 8.4 mEq/L (5-15); Aspartate Amino Transferase 170 U/L (14-36); Bilirubin,Total 0.9 mg/dl (0.2-1.3); Blood Urea Nitrogen 7 mg/dl (7-17); Carbon Dioxide 24 mmol/L (22.0-30.0); Creatinine Clearance Estimated 171 mL/min (50-200); Estimated Glomerular Filt Rate 116 ml/min (>60); GFR (African American) 140 ML/MIN (>60); Globulin 2.3 g/dL (1.3-3.2); Total Protein,Serum 5.4 g/dl (6.3-8.2)
[2024-07-31 06:00] LABS: Alkaline Phosphatase 158 U/L (38-126); Calcium 8.2 mg/dl (8.4-10.2); Glucose 91 mg/dl (74-100); Magnesium 1.9 mg/dl (1.6-2.3)
--- NOTE | 2024-07-31 06:00 | US_ITS ---
FINAL REPORT CLINICAL HISTORY: Distended gallbladder, pancreatitis, elevated LFTs COMPARISON: CT of the abdomen and pelvis 07/30/2024 FINDINGS: Sonographic images of the right upper quadrant were obtained. The pancreas is partially obscured.The liver demonstrates multiple foci of decreased attenuation without enhancement, measuring up to 4.2 x 2.9 cm in size, most likely hepatic cysts. There are multiple gallstones present in the gallbladder, with mild gallbladder wall thickening measuring 5 mm in thickness. There is no evidence of biliary ductal dilatation.The common duct measures 4mm. Limited images of the right kidney are unremarkable. IMPRESSION: Multiple gallstones present in the gallbladder, with mild gallbladder wall thickening measuring 5 mm in thickness. Multiple hepatic cysts. Reviewed, Interpreted and Dictated by Darryl Motley MD Transcribed by Marlee Farah Authenticated and [facility]
[2024-07-31 06:05] LABS: Hemoglobin 10.8 g/dL (12.2-16.2)
--- NOTE | 2024-07-31 06:21 | PC.NURSE ---
patient is alert and oriented x4, ambulates to and from bathroom independently, complained of pain x2 medicated per mar with favorable results, patient has been NPO since midnight, visitor at bedside, call button is in reach
--- NOTE | 2024-07-31 07:10 | P.CONS_ITS ---
History of Present Illness *Admission Date: 07/30/24 *History of present illness: Mrs. Correia is a 34-year-old female who presented with abdominal pain/biliary colic. The patient reports right upper quadrant abdominal pain that began after heavy meal 2 weeks ago on a Tuesday. She had it again the following Tuesday and then this did occur 1 week later on Tuesday and her last episode was Tuesday. Initially, this subsided after a couple of hours but her most recent episode persisted and she went to the ED. She did report right upper quadrant abdominal pain that radiated into the right shoulder. She did have some darkened urine and chills but no fever. She did have some nausea. She has been on Zepbound since May 2024. In the ED, her liver chemistries were elevated with AST 614, ALT 576, alkaline phosphatase 180 and total bilirubin 1.8. She also had a lipase level of 14,447. Her CAT scan of the abdomen and pelvis did show gallbladder distention with pericholecystic fluid consistent with acute cholecystitis. There was some edema of the pancreas consistent with interstitial pancreatitis. Her lab work today has improved and her AST declined to 170, ALT 375, alkaline phosphatase 158 and total bilirubin 0.9. The patient was placed on Zosyn on admission. Today the patient does feel remarkably better. General surgery has not yet seen the patient. CT imaging did not show bile duct dilation but the ultrasound point of care in the ED showed CBD dimension of 10 mm as reported by the reading physician. [facility] Disclaimer: The information contained in this section may have been updated after the patient was seen, as this information can be updated by other users. Medical History (Updated 07/31/24 @ 07:16 by Trace Medina II, MD) Urinary tract infection Hypertension Surgical History (Updated 07/30/24 @ 10:06 by Marita Cantor RN) History of tubal ligation History of section Social History (Updated 07/30/24 @ 12:16 by Radha Tello RN) Smoking Status: Never smoker alcohol intake: current alcohol intake frequency: holidays/special occasions only current occupational status: employed Travel in the last 8 weeks?: None Have you lived/traveled outside US in past 30 days?: No Contact w/someone who lives/traveled outside US past 30 days?: No Exposure to someone with infectious disease in past 14 days?: No Do you have a fever (greater than 100.4 F or 38 C)?: No Have you tested positive for COVID-19?: No Exposed to someone with COVID-19 in past 14 days?: No Do you have a sore throat?: No Do you have a cough?: No Do you have any weakness?: No Are you experiencing any nausea/vomitting?: No Do you have any diarrhea?: No Are you experiencing any unusual bleeding?: No Do you have any muscle aches/pain?: No Do you have any abdominal pain?: Yes Are you experiencing loss of taste or smell?: No Meds Home Medications and Allergies Home Medications ?Medication ?Instructions ?Recorded ?Confirmed ?Type tirzepatide (weight loss) 5 mg/0.5 5 mg SQ WEEKLY 07/30/24 07/30/24 History mL subcutaneous pen injector (Zepbound) New Prescriptions to Start Prescriptions: Allergies Allergy/AdvReac Type Severity Reaction Status Date / Time Sulfa (Sulfonamide Allergy Mild Swelling Verified 07/30/24 10:07 Antibiotics) (SULFA of (SULFONAMIDE ANTIBIOTICS)) Lip/Tongue/Throat Exam (Inpt) Vital signs and Labs for Last 24 Hours: Temp Pulse Resp BP Pulse Ox O2 Del Method 97.6 F 83 15 102/65 L 97 Room Air 07/31/24 04:00 07/31/24 04:00 07/31/24 04:00 07/31/24 04:00 07/31/24 04:00 07/31/24 06:23 Laboratory Results - last 24 hr 07/30/24 09:43: Urine Color Yellow, Urine Appearance Cloudy, Urine pH 6.0, Ur Specific [place] 1.015, Urine Protein Negative, Urine Glucose (UA) Negative, Urine Ketones Negative, Urine Blood Trace-l, Urine Nitrate Negative, Urine Bilirubin 1+ A, Urine Urobilinogen 1.0, Ur Leukocyte Esterase Negative, Urine RBC Occasional, Urine WBC None, Ur Squamous Epith Cells 50-100, Urine Bacteria 2+ 07/30/24 09:53: WBC 6.2, RBC 4.16 L, Hgb 12.8, Hct 36.1 L, MCV 86.8, MCH 30.8, M CHC 35.5 H, RDW 13.0, Plt Count 244, MPV 10.1, Neut % (Auto) 72.4, Lymph % (Auto) 18.3, [place] % (Auto) 7.1, Eos % (Auto) 1.6, Baso % (Auto) 0.3, Neut # (Auto) 4.5, Lymph # (Auto) 1.1, [place] # (Auto) 0.4, Eos # (Auto) 0.1, Baso # (Auto) 0.0, Sodium 140, Potassium 4.2, Chloride 108 H, Carbon Dioxide 27, Anion Gap 9.2, BUN 7, Creatinine 0.50 L, Estimated Creat Clear 202, Estimated GFR 143, Est GFR ( Amer) 173, Glucose 104 H, Calcium 8.8, Total Bilirubin 1.8 H, D irect Bilirubin 1.1 H, GGT 345 H, AST 614 H*, ALT 576 H*, Alkaline Phosphatase 180 H, Troponin I < 0.01, Total Protein 6.4, Albumin 4.2, Globulin 2.2, A lbumin/Globulin Ratio 1.9 H, Triglycerides 87, Cholesterol 134 L, LDL Cholesterol Direct 62.81 L, VLDL Cholesterol 17, HDL Cholesterol 44, Cholesterol/HDL Ratio 3.0, Lipase 85852 H, Serum HCG, Qual Negative, HCV Ab LOU w/Rflx PCR Qn Negative, HIV Ag/Ab Combo Qual Negative 07/31/24 05:17: WBC 6.9, RBC 3.67 L, Hgb 10.8 L D, Hct 31.9 L, MCV 86.9, MCH 30.2, MCHC 34.8, RDW 12.9, Plt Count 210, MPV 10.5 H, Neut % (Auto) 65.5, Lymph % (Auto) 23.2, [place] % (Auto) 8.0, Eos % (Auto) 2.7, Baso % (Auto) 0.3, Neut # (Auto) 4.5, Lymph # (Auto) 1.6, [place] # (Auto) 0.6, Eos # (Auto) 0.2, Baso # (Auto) 0.0, Sodium 139, Potassium 3.4 L, Chloride 110 H, Carbon Dioxide 24, Anion Gap 8.4, BUN 7, Creatinine 0.60, Estimated Creat Clear 171, Estimated GFR 116, Est GFR ( Amer) 140, Glucose 91, Calcium 8.2 L, Magnesium 1.9, Total Bilirubin 0.9, AST 170 H D, ALT 375 H*, Alkaline Phosphatase 158 H, Total Protein 5.4 L, Albumin 3.1 L D, Globulin 2.3, Albumin/Globulin Ratio 1.3 I & O for Labs for Last 24 Hours: Intake & Output 07/28/24 07/29/24 07/30/24 07/31/24 23:59 23:59 23:59 23:59 Intake Total 850 / 1140 290 / 290 Balance 850 / 1140 290 / 290 Weight 175 lb 177 lb 9.6 oz Comments:: Tenderness right upper quadrant with Sarabia's Results Labs 07/31/24 05:17 07/31/24 05:17 Labs: Laboratory Results - last 24 hr 07/30/24 09:43: Urine Color Yellow, Urine Appearance Cloudy, Urine pH 6.0, Ur Specific [place] 1.015, Urine Protein Negative, Urine Glucose (UA) Negative, Urine Ketones Negative, Urine Blood Trace-l, Urine Nitrate Negative, Urine Bilirubin 1+ A, Urine Urobilinogen 1.0, Ur Leukocyte Esterase Negative, Urine RBC Occasional, Urine WBC None, Ur Squamous Epith Cells 50-100, Urine Bacteria 2+ 07/30/24 09:53: WBC 6.2, RBC 4.16 L, Hgb 12.8, Hct 36.1 L, MCV 86.8, MCH 30.8, M CHC 35.5 H, RDW 13.0, Plt Count 244, MPV 10.1, Neut % (Auto) 72.4, Lymph % (Auto) 18.3, [place] % (Auto) 7.1, Eos % (Auto) 1.6, Baso % (Auto) 0.3, Neut # (Auto) 4.5, Lymph # (Auto) 1.1, [place] # (Auto) 0.4, Eos # (Auto) 0.1, Baso # (Auto) 0.0, Sodium 140, Potassium 4.2, Chloride 108 H, Carbon Dioxide 27, Anion Gap 9.2, BUN 7, Creatinine 0.50 L, Estimated Creat Clear 202, Estimated GFR 143, Est GFR ( Amer) 173, Glucose 104 H, Calcium 8.8, Total Bilirubin 1.8 H, D irect Bilirubin 1.1 H, GGT 345 H, AST 614 H*, ALT 576 H*, Alkaline Phosphatase 180 H, Troponin I < 0.01, Total Protein 6.4, Albumin 4.2, Globulin 2.2, A lbumin/Globulin Ratio 1.9 H, Triglycerides 87, Cholesterol 134 L, LDL Cholesterol Direct 62.81 L, VLDL Cholesterol 17, HDL Cholesterol 44, Cholesterol/HDL Ratio 3.0, Lipase 51885 H, Serum HCG, Qual Negative, HCV Ab LOU w/Rflx PCR Qn Negative, HIV Ag/Ab Combo Qual Negative 07/31/24 05:17: WBC 6.9, RBC 3.67 L, Hgb 10.8 L D, Hct 31.9 L, MCV 86.9, MCH 30.2, MCHC 34.8, RDW 12.9, Plt Count 210, MPV 10.5 H, Neut % (Auto) 65.5, Lymph % (Auto) 23.2, [place] % (Auto) 8.0, Eos % (Auto) 2.7, Baso % (Auto) 0.3, Neut # (Auto) 4.5, Lymph # (Auto) 1.6, [place] # (Auto) 0.6, Eos # (Auto) 0.2, Baso # (Auto) 0.0, Sodium 139, Potassium 3.4 L, Chloride 110 H, Carbon Dioxide 24, Anion Gap 8.4, BUN 7, Creatinine 0.60, Estimated Creat Clear 171, Estimated GFR 116, Est GFR ( Amer) 140, Glucose 91, Calcium 8.2 L, Magnesium 1.9, Total Bilirubin 0.9, AST 170 H D, ALT 375 H*, Alkaline Phosphatase 158 H, Total Protein 5.4 L, Albumin 3.1 L D, Globulin 2.3, Albumin/Globulin Ratio 1.3 Assessment and Plan *Assessment and plan (1) Acute cholecystitis: Status: Acute Category: Medical Code(s): K81.0 - Acute cholecystitis (2) Gallstone pancreatitis: Status: Acute Category: Medical Code(s): K85.10 - Biliary acute pancreatitis without necrosis or infection (3) Elevated liver enzymes: Status: Acute Category: Medical Code(s): R74.8 - Abnormal levels of other serum enzymes (4) Choledocholithiasis: Status: Acute Category: Medical Code(s): K80.50 - Calculus of bile duct without cholangitis or cholecystitis without obstruction Plan 1. Acute cholecystitis with CBD stones and gallstone pancreatitis. Aggressive management of gallstone pancreatitis has changed some in the last decade. In the past, we did vigorously pursue clearance of the CBD with early ERCP. In patients with gallstone pancreatitis, most stones pass into the duodenum without the need for intervention. However, in a small proportion of patients obstructive stones in the biliary tree can cause biliary and pancreatic duct obstruction leading to pancreatitis and cholangitis. When cholangitis is present on admission, urgent ERCP (within 24 to 48 hours) is indicated. When biliary obstruction is present (without clinical or lab presence of cholangitis) based upon the presence of visible stone(s) or dilated CBD on imaging or elevated or increasing alkaline phosphatase, bilirubin or transaminases during initial and subsequent lab monitoring, we procede to nonemergent ERCP (during the index admission). If it is not clear, we trend liver tests over 24 to 48 hours and if they remain persistently elevated we will do an MRCP. The patient's liver chemistries are rapidly trending down and I do suspect that she passed a stone. I would hold off on ERCP or MRCP since this is improving. She will be seen by general surgery today for discussion of cholecystectomy. General surgery will decide whether they would do cholecystectomy during index admission or allowing inflammation to subside. I would not put off cholecystectomy too long which would run risk of recurrent cholecystitis or passing additional CBD stones.
--- NOTE | 2024-07-31 07:24 | EXP.SURG.CON ---
History of Present Illness *Admission Date: 07/30/24 *Reason for visit:: Acute cholecystitis *History of present illness: Patient is a 34-year-old female who presented to the emergency department on 07/30/2024 with right upper quadrant abdominal pain beginning about a week and a half prior. It was somewhat waxing and waning only to recur significantly on 07/29/2024. She therefore presented to the emergency department. Evaluation in the emergency department revealed elevated AST of 614, ALT 576, alkaline phosphatase 180, bilirubin 1.8, lipase 14,447. She had a CT scan which revealed distended gallbladder with pericholecystic fluid. Also there was some edema of the pancreas consistent with pancreatitis. [id number] ultrasound revealed possible 10 mm common bile duct. General surgery consultation was ordered for the patient to be seen in the morning of 07/31/2024. Gastroenterology consultation ordered as well. She feels better. [facility] Disclaimer: The information contained in this section may have been updated after the patient was seen, as this information can be updated by other users. Medical History (Updated 07/31/24 @ 07:16 by Trace Medina II, MD) Urinary tract infection Hypertension Surgical History (Updated 07/30/24 @ 10:06 by Marita Cantor RN) History of tubal ligation History of section Social History (Updated 07/30/24 @ 12:16 by Radha Tello RN) Smoking Status: Never smoker alcohol intake: current alcohol intake frequency: holidays/special occasions only current occupational status: employed Travel in the last 8 weeks?: None Have you lived/traveled outside [place] in past 30 days?: No Contact w/someone who lives/traveled outside [place] past 30 days?: No Exposure to someone with infectious disease in past 14 days?: No Do you have a fever (greater than 100.4 F or 38 C)?: No Have you tested positive for COVID-19?: No Exposed to someone with COVID-19 in past 14 days?: No Do you have a sore throat?: No Do you have a cough?: No Do you have any weakness?: No Are you experiencing any nausea/vomitting?: No Do you have any diarrhea?: No Are you experiencing any unusual bleeding?: No Do you have any muscle aches/pain?: No Do you have any abdominal pain?: Yes Are you experiencing loss of taste or smell?: No Meds Home Medications and Allergies Home Medications ?Medication ?Instructions ?Recorded ?Confirmed ?Type tirzepatide (weight loss) 5 mg/0.5 5 mg SQ WEEKLY 07/30/24 07/30/24 History mL subcutaneous pen injector (Zepbound) New Prescriptions to Start Prescriptions: Allergies Allergy/AdvReac Type Severity Reaction Status Date / Time Sulfa (Sulfonamide Allergy Mild Swelling Verified 07/30/24 10:07 Antibiotics) (SULFA of (SULFONAMIDE ANTIBIOTICS)) Lip/Tongue/Throat Exam (Inpt) Vital signs and Labs for Last 24 Hours: Temp Pulse Resp BP Pulse Ox O2 Del Method 97.6 F 83 15 102/65 L 97 Room Air 07/31/24 04:00 07/31/24 04:00 07/31/24 04:00 07/31/24 04:00 07/31/24 04:00 07/31/24 06:23 Laboratory Results - last 24 hr 07/30/24 09:43: Urine Color Yellow, Urine Appearance Cloudy, Urine pH 6.0, Ur Specific [place] 1.015, Urine Protein Negative, Urine Glucose (UA) Negative, Urine Ketones Negative, Urine Blood Trace-l, Urine Nitrate Negative, Urine Bilirubin 1+ A, Urine Urobilinogen 1.0, Ur Leukocyte Esterase Negative, Urine RBC Occasional, Urine WBC None, Ur Squamous Epith Cells 50-100, Urine Bacteria 2+ 07/30/24 09:53: WBC 6.2, RBC 4.16 L, Hgb 12.8, Hct 36.1 L, MCV 86.8, MCH 30.8, MCHC 35.5 H, RDW 13.0, Plt Count 244, MPV 10.1, Neut % (Auto) 72.4, Lymph % (Auto) 18.3, [place] % (Auto) 7.1, Eos % (Auto) 1.6, Baso % (Auto) 0.3, Neut # (Auto) 4.5, Lymph # (Auto) 1.1, [place] # (Auto) 0.4, Eos # (Auto) 0.1, Baso # (Auto) 0.0, Sodium 140, Potassium 4.2, Chloride 108 H, Carbon Dioxide 27, Anion Gap 9.2, BUN 7, Creatinine 0.50 L, Estimated Creat Clear 202, Estimated GFR 143, Est GFR ( Amer) 173, Glucose 104 H, Calcium 8.8, Total Bilirubin 1.8 H, Direct Bilirubin 1.1 H, GGT 345 H, AST 614 H*, ALT 576 H*, Alkaline Phosphatase 180 H, Troponin I < 0.01, Total Protein 6.4, Albumin 4.2, Globulin 2.2, Albumin/Globulin Ratio 1.9 H, Triglycerides 87, Cholesterol 134 L, LDL Cholesterol Direct 62.81 L, VLDL Cholesterol 17, HDL Cholesterol 44, Cholesterol/HDL Ratio 3.0, Lipase 70990 H, Serum HCG, Qual Negative, HCV Ab LOU w/Rflx PCR Qn Negative, HIV Ag/Ab Combo Qual Negative 07/31/24 05:17: WBC 6.9, RBC 3.67 L, Hgb 10.8 L D, Hct 31.9 L, MCV 86.9, MCH 30.2, MCHC 34.8, RDW 12.9, Plt Count 210, MPV 10.5 H, Neut % (Auto) 65.5, Lymph % (Auto) 23.2, [place] % (Auto) 8.0, Eos % (Auto) 2.7, Baso % (Auto) 0.3, Neut # (Auto) 4.5, Lymph # (Auto) 1.6, [place] # (Auto) 0.6, Eos # (Auto) 0.2, Baso # (Auto) 0.0, Sodium 139, Potassium 3.4 L, Chloride 110 H, Carbon Dioxide 24, Anion Gap 8.4, BUN 7, Creatinine 0.60, Estimated Creat Clear 171, Estimated GFR 116, Est GFR ( Amer) 140, Glucose 91, Calcium 8.2 L, Magnesium 1.9, Total Bilirubin 0.9, AST 170 H D, ALT 375 H*, Alkaline Phosphatase 158 H, Total Protein 5.4 L, Albumin 3.1 L D, Globulin 2.3, Albumin/Globulin Ratio 1.3 I & O for Labs for Last 24 Hours: Intake & Output 07/28/24 07/29/24 07/30/24 07/31/24 11:59 11:59 11:59 11:59 Intake Total 1140 / 1140 Balance 1140 / 1140 Weight 175 lb 177 lb 9.6 oz Constitutional: no acute distress Head: Present normocephalic GI: Present soft; Absent tenderness Results Labs 07/31/24 05:17 07/31/24 05:17 Labs: Laboratory Results - last 24 hr 07/30/24 09:43: Urine Color Yellow, Urine Appearance Cloudy, Urine pH 6.0, Ur Specific [place] 1.015, Urine Protein Negative, Urine Glucose (UA) Negative, Urine Ketones Negative, Urine Blood Trace-l, Urine Nitrate Negative, Urine Bilirubin 1+ A, Urine Urobilinogen 1.0, Ur Leukocyte Esterase Negative, Urine RBC Occasional, Urine WBC None, Ur Squamous Epith Cells 50-100, Urine Bacteria 2+ 07/30/24 09:53: WBC 6.2, RBC 4.16 L, Hgb 12.8, Hct 36.1 L, MCV 86.8, MCH 30.8, MCHC 35.5 H, RDW 13.0, Plt Count 244, MPV 10.1, Neut % (Auto) 72.4, Lymph % (Auto) 18.3, [place] % (Auto) 7.1, Eos % (Auto) 1.6, Baso % (Auto) 0.3, Neut # (Auto) 4.5, Lymph # (Auto) 1.1, [place] # (Auto) 0.4, Eos # (Auto) 0.1, Baso # (Auto) 0.0, Sodium 140, Potassium 4.2, Chloride 108 H, Carbon Dioxide 27, Anion Gap 9.2, BUN 7, Creatinine 0.50 L, Estimated Creat Clear 202, Estimated GFR 143, Est GFR ( Amer) 173, Glucose 104 H, Calcium 8.8, Total Bilirubin 1.8 H, Direct Bilirubin 1.1 H, GGT 345 H, AST 614 H*, ALT 576 H*, Alkaline Phosphatase 180 H, Troponin I < 0.01, Total Protein 6.4, Albumin 4.2, Globulin 2.2, Albumin/Globulin Ratio 1.9 H, Triglycerides 87, Cholesterol 134 L, LDL Cholesterol Direct 62.81 L, VLDL Cholesterol 17, HDL Cholesterol 44, Cholesterol/HDL Ratio 3.0, Lipase 22654 H, Serum HCG, Qual Negative, HCV Ab LOU w/Rflx PCR Qn Negative, HIV Ag/Ab Combo Qual Negative 07/31/24 05:17: WBC 6.9, RBC 3.67 L, Hgb 10.8 L D, Hct 31.9 L, MCV 86.9, MCH 30.2, MCHC 34.8, RDW 12.9, Plt Count 210, MPV 10.5 H, Neut % (Auto) 65.5, Lymph % (Auto) 23.2, [place] % (Auto) 8.0, Eos % (Auto) 2.7, Baso % (Auto) 0.3, Neut # (Auto) 4.5, Lymph # (Auto) 1.6, [place] # (Auto) 0.6, Eos # (Auto) 0.2, Baso # (Auto) 0.0, Sodium 139, Potassium 3.4 L, Chloride 110 H, Carbon Dioxide 24, Anion Gap 8.4, BUN 7, Creatinine 0.60, Estimated Creat Clear 171, Estimated GFR 116, Est GFR ( Amer) 140, Glucose 91, Calcium 8.2 L, Magnesium 1.9, Total Bilirubin 0.9, AST 170 H D, ALT 375 H*, Alkaline Phosphatase 158 H, Total Protein 5.4 L, Albumin 3.1 L D, Globulin 2.3, Albumin/Globulin Ratio 1.3 Assessment and Plan *Assessment and plan (1) Gallstone pancreatitis: Status: Acute Category: Medical Code(s): K85.10 - Biliary acute pancreatitis without necrosis or infection Plan Patient likely has biliary pancreatitis possibly secondary to passed gallstone. She has shown some slight improvement in liver function test. I will order a lipase repeat. Ultrasound pending. At this time no plans for MRCP or ERCP. Once pancreatitis shows improvement may need early interval cholecystectomy.
--- NOTE | 2024-07-31 07:26 | EXP.ACUTE.PN ---
Subjective *Date: 07/31/24 *Time: : Medical Exam Vital signs and Labs for Last 24 Hours: Vital Signs Temp Pulse Pulse Resp BP BP Pulse Ox 07/31/24 06:23 07/31/24 05:00 07/31/24 04:00 97.6 F 83 15 102/65 L 97 07/31/24 03:00 07/31/24 01:00 07/31/24 00:00 98.5 F 68 18 101/64 L 100 07/30/24 23:00 07/30/24 21:00 07/30/24 20:00 07/30/24 19:55 98.3 F 83 18 120/71 98 07/30/24 18:45 07/30/24 17:00 07/30/24 16:00 98.2 F 89 22 156/75 H 98 07/30/24 16:00 07/30/24 15:00 07/30/24 13:00 07/30/24 12:02 97.7 F 79 18 122/81 07/30/24 12:00 98.2 F 07/30/24 11:51 07/30/24 10:00 78 100 07/30/24 10:00 97.7 F 79 18 122/81 100 07/30/24 09:50 81 122/81 100 O2 Del Method 07/31/24 06:23 Room Air 07/31/24 05:00 Room Air 07/31/24 04:00 Room Air 07/31/24 03:00 Room Air 07/31/24 01:00 Room Air 07/31/24 00:00 Room Air 07/30/24 23:00 Room Air 07/30/24 21:00 Room Air 07/30/24 20:00 Room Air 07/30/24 19:55 Room Air 07/30/24 18:45 Room Air 07/30/24 17:00 Room Air 07/30/24 16:00 Room Air 07/30/24 16:00 Room Air 07/30/24 15:00 Room Air 07/30/24 13:00 Room Air 07/30/24 12:02 Room Air 07/30/24 12:00 07/30/24 11:51 Room Air 07/30/24 10:00 07/30/24 10:00 Room Air 07/30/24 09:50 Intake and Output 07/30/24 07/30/24 07/31/24 15:59 23:59 07:59 Intake Total 350 / 1140 500 / 1140 290 / 290 Balance 350 / 1140 500 / 1140 290 / 290 Intake: Intake, Oral Amount 350 / 1090 500 / 1090 240 / 240 Intake, Total IV Amount 50 / 50 Pipercillin/Tazo 3.375 gm In 0. 50 / 50 9 % Sodium Chloride 50 ml @ 100 mls/hr IV Q8H [facility] Rx#:[id number] Other: Weight 79.379 kg 80.558 kg Patient Weight 07/31/24 23:59 Weight 80.558 kg Laboratory Results - last 24 hr 07/30/24 09:43: Urine Color Yellow, Urine Appearance Cloudy, Urine pH 6.0, Ur Specific [facility] 1.015, Urine Protein Negative, Urine Glucose (UA) Negative, Urine Ketones Negative, Urine Blood Trace-l, Urine Nitrate Negative, Urine Bilirubin 1+ A, Urine Urobilinogen 1.0, Ur Leukocyte Esterase Negative, Urine RBC Occasional, Urine WBC None, Ur Squamous Epith Cells 50-100, Urine Bacteria 2+ 07/30/24 09:53: WBC 6.2, RBC 4.16 L, Hgb 12.8, Hct 36.1 L, MCV 86.8, MCH 30.8, MCHC 35.5 H, RDW 13.0, Plt Count 244, MPV 10.1, Neut % (Auto) 72.4, Lymph % (Auto) 18.3, [place] % (Auto) 7.1, Eos % (Auto) 1.6, Baso % (Auto) 0.3, Neut # (Auto) 4.5, Lymph # (Auto) 1.1, [place] # (Auto) 0.4, Eos # (Auto) 0.1, Baso # (Auto) 0.0, Sodium 140, Potassium 4.2, Chloride 108 H, Carbon Dioxide 27, Anion Gap 9.2, BUN 7, Creatinine 0.50 L, Estimated Creat Clear 202, Estimated GFR 143, Est GFR ( Amer) 173, Glucose 104 H, Calcium 8.8, Total Bilirubin 1.8 H, Direct Bilirubin 1.1 H, GGT 345 H, AST 614 H*, ALT 576 H*, Alkaline Phosphatase 180 H, Troponin I < 0.01, Total Protein 6.4, Albumin 4.2, Globulin 2.2, Albumin/Globulin Ratio 1.9 H, Triglycerides 87, Cholesterol 134 L, LDL Cholesterol Direct 62.81 L, VLDL Cholesterol 17, HDL Cholesterol 44, Cholesterol/HDL Ratio 3.0, Lipase 55145 H, Serum HCG, Qual Negative, HCV Ab LOU w/Rflx PCR Qn Negative, HIV Ag/Ab Combo Qual Negative 07/31/24 05:17: WBC 6.9, RBC 3.67 L, Hgb 10.8 L D, Hct 31.9 L, MCV 86.9, MCH 30.2, MCHC 34.8, RDW 12.9, Plt Count 210, MPV 10.5 H, Neut % (Auto) 65.5, Lymph % (Auto) 23.2, [place] % (Auto) 8.0, Eos % (Auto) 2.7, Baso % (Auto) 0.3, Neut # (Auto) 4.5, Lymph # (Auto) 1.6, [place] # (Auto) 0.6, Eos # (Auto) 0.2, Baso # (Auto) 0.0, Sodium 139, Potassium 3.4 L, Chloride 110 H, Carbon Dioxide 24, Anion Gap 8.4, BUN 7, Creatinine 0.60, Estimated Creat Clear 171, Estimated GFR 116, Est GFR ( Amer) 140, Glucose 91, Calcium 8.2 L, Magnesium 1.9, Total Bilirubin 0.9, AST 170 H D, ALT 375 H*, Alkaline Phosphatase 158 H, Total Protein 5.4 L, Albumin 3.1 L D, Globulin 2.3, Albumin/Globulin Ratio 1.3 I & O for Labs for Last 24 Hours: Intake & Output 07/28/24 07/29/24 07/30/24 07/31/24 23:59 23:59 23:59 23:59 Intake Total 850 / 1140 290 / 290 Balance 850 / 1140 290 / 290 Weight 79.379 kg 80.558 kg Constitutional: Present no acute distress Respiratory: Present normal respiratory effort Cardiac: Present Reg Rate and Rhythm GI: Present normal bowel sounds; Absent tenderness Extremities: Present normal inspection and full ROM Skin: Present intact; Absent erythema Neuro: Present Grossly Intact and moves all extremities Assessment and Plan *Assessment and plan (1) Acute cholecystitis: Status: Acute Category: Medical Code(s): K81.0 - Acute cholecystitis (2) Choledocholithiasis: Status: Acute Category: Medical Code(s): K80.50 - Calculus of bile duct without cholangitis or cholecystitis without obstruction (3) Pancreatitis: Status: Acute Category: Medical Code(s): K85.90 - Acute pancreatitis without necrosis or infection, unspecified (4) Gallstone pancreatitis: Status: Acute Category: Medical Code(s): K85.10 - Biliary acute pancreatitis without necrosis or infection (5) Elevated liver enzymes: Status: Acute Category: Medical Code(s): R74.8 - Abnormal levels of other serum enzymes Plan Phuong Correia is a 34-year-old female with no significant medical history presents with 3-week onset of intermittent RUQ abdominal pains with radiation to the right shoulder which worsened over the past day. Patient states his abdominal pains have been intermittent over the past weeks have usually self resolved, however last night it began but has not resolved and today which point patient presented to the ED. Endorses chills, but denies fevers, chest pains, diarrhea/constipation. Does endorse the fact that she was started Zepbound (GLP-1 agonist) in May 2024. Otherwise denies eating anything different, travel history, scorpion bite. Workup in the ED significant for transaminitis total bilirubin/AST/ALT/ALP 1.8/614/576/180. Lipase 14,447. WBC normal. CT abdomen/pelvis suggestive of cholecystitis and pancreatitis. ED discussed case with GI who is tentatively planning for ERCP in the morning. Case discussed with ED provider and she was made to admit patient for suspected choledocholithiasis, possible cholangitis, and pancreatitis. #Suspected acute cholecystitis #Suspected choledocholithiasis #Possible acute cholangitis #Transaminitis #Acute pancreatitis ? Presents with 3 weeks of intermittent RUQ abdominal pains with radiation of the right shoulder, this episode not resolving on its own. Intermittent chills, but denies fevers. ? Grossly elevated LFTs on arrival total bilirubin/AST/ALT/ALP 1.8/614/576/180. Lipase 14,447. GGT 345. Lipid panel, calcium normal. WBC normal. ? No cholelithiasis identified on CT abdomen, but CBD was dilated on POCUS in the ED. ? It is very possible that a gallstone are still present in the distal CBD. ? Presentation complicated by starting of GLP-1 agonist in May 2024, likely contributing to pancreatitis. At this time, pancreatitis seems to be mostly related to underlying suspected gallstone pancreatitis. ? GI consulted in the ED, tentatively planning for ERCP in the morning. N.p.o. at midnight. ? General Surgery consulted for suspected acute cholecystitis, pending recommendations. ? Continue Zosyn empirically for cholecystitis, possible cholangitis. ? Follow-up RUQ ultrasound in the morning. ? Possible MRCP pending GI recommendations. ? Consider viral, mono panel if above workup is unremarkable. ? Follow-up with hepatitis panel. ? Continue IV LR at 100 mL/h. The patient's liver chemistries are rapidly trending down and I do suspect that she passed a stone. I would hold off on ERCP or MRCP since this is improving. She will be seen by general surgery today for discussion of cholecystectomy. General surgery will decide whether they would do cholecystectomy during index admission or allowing inflammation to subside. I would not put off cholecystectomy too long which would run risk of recurrent cholecystitis or passing additional CBD stones. Full code DVT prophylaxis: Held in setting of possible surgery today. resume lovenox 40 mg daily when appropriate
[2024-07-31 07:33] VITALS: BP 105/60; PULSE 75; RESP 18; TEMP 36.7; O2SAT 100
[2024-07-31 07:49] LABS: Lipase 1373 U/L (23-300)
[2024-07-31] MEDS: ONDANSETRON 4MG/2ML VIAL 4 MG IV (08:57)
[2024-07-31] MEDS: POTASSIUM CHLORIDE 20MEQ TAB 40 MEQ PO ×2 (08:57→11:57)
[2024-07-31 12:00] VITALS: BP 136/58; PULSE 78; RESP 18; TEMP 36.4; O2SAT 100
[2024-07-31 16:00] VITALS: BP 109/59; PULSE 83; RESP 18; TEMP 36.8; O2SAT 100
--- NOTE | 2024-07-31 16:44 | P.DS_ITS ---
General Admission date:: 07/30/24 Discharge date: 07/31/24 HPI HPI HPI: Patient is a 34-year-old female who presented to the emergency department on 07/30/2024 with right upper quadrant abdominal pain beginning about a week and a half prior. It was somewhat waxing and waning only to recur significantly on 07/29/2024. She therefore presented to the emergency department. Evaluation in the emergency department revealed elevated AST of 614, ALT 576, alkaline phosphatase 180, bilirubin 1.8, lipase 14,447. She had a CT scan which revealed distended gallbladder with pericholecystic fluid. Also there was some edema of the pancreas consistent with pancreatitis. [id number] ultrasound revealed possible 10 mm common bile duct. General surgery consultation was ordered for the patient to be seen in the morning of 07/31/2024. Gastroenterology consultation ordered as well. She feels better. Hospital Course Hospital Course Hospital Course: Phuong Correia is a 34-year-old female with no significant medical history presents with 3-week onset of intermittent RUQ abdominal pains with radiation to the right shoulder which worsened over the past day. Patient states his abdominal pains have been intermittent over the past weeks have usually self resolved, however last night it began but has not resolved and today which point patient presented to the ED. Endorses chills, but denies fevers, chest pains, diarrhea/constipation. Does endorse the fact that she was started Zepbound (GLP-1 agonist) in May 2024. Otherwise denies eating anything different, travel history, scorpion bite. Workup in the ED significant for transaminitis total bilirubin/AST/ALT/ALP 1.8/614/576/180. Lipase 14,447. WBC normal. CT abdomen/pelvis suggestive of cholecystitis and pancreatitis. ED discussed case with GI who is tentatively planning for ERCP in the morning. Case discussed with ED provider and she was made to admit patient for suspected choledocholithiasis, possible cholangitis, and pancreatitis. Showing improvement by morning. No signs of common bile duct dilation. Discussed case with GI and surgery, as her liver enzymes are improving and her lipase is improving significantly, advance diet. Tolerating full liquids without significant pain. Will discharge home with plan for close follow-up with alfredo nino later this week and cholecystectomy in the next week to address underlying pathology. Stable discharge home with further management as an outpatient. Problems addressed as follows: #Suspected acute cholecystitis #Suspected choledocholithiasis #Possible acute cholangitis #Transaminitis #Acute pancreatitis ? Presents with 3 weeks of intermittent RUQ abdominal pains with radiation of the right shoulder, this episode not resolving on its own. Intermittent chills, but denies fevers. Grossly elevated LFTs on arrival total bilirubin/AST/ALT/ALP 1.8/614/576/180. Lipase 14,447. GGT 345. Lipid panel, calcium normal. WBC normal. Repeat labs in the morning showing improvement with bilirubin 0.9, AST and ALT 170 and 375 respectively. Ultrasound obtained showing no formal CBD dilation. CBD 5 mm on formal right upper quadrant ultrasound. Suspect patient passed gallstone. Presentation also complicated by initiation of GLP-1 in May. Lipase improved to 1300 by morning. Able to advance to full liquid diet with no nausea or vomiting or significant pain. Discussed case with both GI and surgery. Deferred on ERCP at this time. Surgery recommends proceeding with cholecystectomy after acute pancreatitis cools down. Treated with Zosyn during admission, discontinued at discharge however given normal white count and improvement in symptoms. Plan for close follow-up with surgery later this week with scheduled outpatient cholecystectomy within the next week. Continue with low-fat/no fat diet. -After shared decision making with patient, prefers to discharge home further management as an outpatient. Agree that this plan is feasible given her clinical improvement since admission. -Tylenol or ibuprofen as needed for pain control - Repeat CBC, CMP ordered for prior to follow-up with surgery Total time spent on discharge 42 minutes in counseling, documentation, chart review, and direct care with patient. Exam Data for Last 24 hours Vital signs and Labs for Last 24 Hours: Temp Pulse Resp BP Pulse Ox O2 Del Method 97.6 F 78 18 136/58 L 100 Room Air 07/31/24 12:00 07/31/24 12:00 07/31/24 12:00 07/31/24 12:00 07/31/24 12:00 07/31/24 14:39 Laboratory Results - last 24 hr 07/31/24 05:17: WBC 6.9, RBC 3.67 L, Hgb 10.8 L D, Hct 31.9 L, MCV 86.9, MCH 30.2, MCHC 34.8, RDW 12.9, Plt Count 210, MPV 10.5 H, Neut % (Auto) 65.5, Lymph % (Auto) 23.2, [place] % (Auto) 8.0, Eos % (Auto) 2.7, Baso % (Auto) 0.3, Neut # (Auto) 4.5, Lymph # (Auto) 1.6, [place] # (Auto) 0.6, Eos # (Auto) 0.2, Baso # (Auto) 0.0, Sodium 139, Potassium 3.4 L, Chloride 110 H, Carbon Dioxide 24, Anion Gap 8.4, BUN 7, Creatinine 0.60, Estimated Creat Clear 171, Estimated GFR 116, Est GFR ( Amer) 140, Glucose 91, Calcium 8.2 L, Magnesium 1.9, Total Bilirubin 0.9, AST 170 H D, ALT 375 H*, Alkaline Phosphatase 158 H, Total Protein 5.4 L, Albumin 3.1 L D, Globulin 2.3, Albumin/Globulin Ratio 1.3, Lipase 1373 H I & O for Last 24 hours: Intake & Output 07/28/24 07/29/24 07/30/24 07/31/24 23:59 23:59 23:59 23:59 Intake Total 850 / 1140 290 / 290 Output Total 0 / 0 Balance 850 / 1140 290 / 290 Weight 79.379 kg 80.558 kg Constitutional Constitutional: no acute distress and cooperative *Routine HEENT Exam Head: Present normocephalic Eye: Present EOMI and PERRL ENT: Present mucous membranes moist *Routine Neck Exam Neck: Present supple; Absent lymphadenopathy *Routine Respiratory Exam Respiratory: Present CTA bilaterally; Absent rhonchi *Routine Cardiovascular Exam Cardiovascular: Present RRR *Routine Abdominal Exam Abdominal: Present soft, normoactive bowel sounds and tenderness (mild RUQ) *Routine Rectal Exam Patient deferred: visual exam *Routine Exam Patient deferred: external exam *Routine Extremities Exam Extremities: Absent cyanosis, clubbing or edema *Routine Skin Exam Skin: Present intact and warm; Absent rash *Routine Neurological Exam Neurological: Present alert, oriented X3 and moving all extremities; Absent altered mental status Results Data Completed and Pending Labs on day of discharge: Labs from last 24 hours 07/31/24 05:17 WBC 6.9 RBC 3.67 L Hgb 10.8 L D Hct 31.9 L MCV 86.9 MCH 30.2 MCHC 34.8 RDW 12.9 Plt Count 210 MPV 10.5 H Neut % (Auto) 65.5 Lymph % (Auto) 23.2 [place] % (Auto) 8.0 Eos % (Auto) 2.7 Baso % (Auto) 0.3 Neut # (Auto) 4.5 Lymph # (Auto) 1.6 [place] # (Auto) 0.6 Eos # (Auto) 0.2 Baso # (Auto) 0.0 Sodium 139 Potassium 3.4 L Chloride 110 H Carbon Dioxide 24 Anion Gap 8.4 BUN 7 Creatinine 0.60 Estimated Creat Clear 171 Estimated GFR 116 Est GFR ( Amer) 140 Glucose 91 Calcium 8.2 L Magnesium 1.9 Total Bilirubin 0.9 AST 170 H D ALT 375 H* Alkaline Phosphatase 158 H Total Protein 5.4 L Albumin 3.1 L D Globulin 2.3 Albumin/Globulin Ratio 1.3 Lipase 1373 H DS: Diagnosis Discharge Diagnosis (1) Gallstone pancreatitis: Status: Acute Code(s): K85.10 - Biliary acute pancreatitis without necrosis or infection (2) Elevated liver enzymes: Status: Acute Code(s): R74.8 - Abnormal levels of other serum enzymes (3) Acute cholecystitis: Status: Acute Code(s): K81.0 - Acute cholecystitis (4) Choledocholithiasis: Status: Acute Code(s): K80.50 - Calculus of bile duct without cholangitis or cholecystitis without obstruction Meds Home Medications and Allergies Home Medications ?Medication ?Instructions ?Recorded ?Confirmed ?Type tirzepatide (weight loss) 5 mg/0.5 5 mg SQ WEEKLY 07/30/24 07/30/24 History mL subcutaneous pen injector (Zepbound) New Prescriptions to Start Prescriptions: Allergies Allergy/AdvReac Type Severity Reaction Status Date / Time Sulfa (Sulfonamide Allergy Mild Swelling Verified 07/30/24 10:07 Antibiotics) (SULFA of (SULFONAMIDE ANTIBIOTICS)) Lip/Tongue/Throat Discharge Plan Disposition Patient Disposition: Home, Self-Care Condition: Fair Discharge Order Discharge Orders: Discharge Order (Routine); Ordered 07/31/24 Ordered By: Luis F Barreto Follow up Plan Follow up with: Raza Spears MD [Staff Physician] - 08/02/24 2:00 pm Prescriptions/Medication Reconciliation: Held Zepbound 5 mg/0.5 mL pen injector 5 mg SQ WEEKLY Hold Instructions: pending gallbladder removal Patient Comments: INJECT THE CONTENTS OF 1 PEN (5MG/0.5ML) SUBCUTANEOUSLY ONCE WEEKLY Other Ambulatory Orders: Complete Blood Count Auto Diff (Routine) Timeframe: 1 Day Facility: [facility] - Location: Laboratory Ordered By: Luis F Barreto Comprehensive Metabolic Panel (Routine) Timeframe: 1 Day Facility: [facility] - Location: Laboratory Ordered By: Luis F Barreto Problem Reconciliation Problems Reviewed?: Yes Patient Discharge Instructions ACTIVITY: Continue current activity DIET: advance to your usual diet and low fat, low cholesterol Patient Instructions: Gallstones Print Language: Malay Providers Primary Care Provider: Roshni Fernandez Admit Provider: Malick Francisco Attending Provider: Malick Francisco
[2024-08-01 05:22] LABS: HBsAg Screen Negative (Negative); HCV Ab Non Reactive (Non Reactive); Hep A Ab, IGM Negative (Negative); Hep B Core Ab, IgM Negative (Negative)
--- NOTE | 2024-08-02 10:36 | SW/DCPLANNER ---
Phoned patient x2. Left message with name and a call back number. Muna Vazquez
--- NOTE | 2024-08-02 10:45 | SW/DCPLANNER ---
Spoke with patient on the phone. Patient stated that she is doing good. Patient stated that she has no concerns or questions at this time. Patient stated that she is aware of her upcoming appointment. Patient stated that she has no concerns or questions at this time. Muna Vazquez
== END 2024-07-31 17:49 | disposition home or self-care (01) | DRG 444 ==
LOC: ER 11:20 → 2ND 12:03
PROVIDERS: Surgery; Admitting Provider Student in an Organized Health Care Education/Training Program; Emergency Provider Emergency Medicine; PCP Nurse Practitioner Family; Visit Provider Student in an Organized Health Care Education/Training Program
DX: K80.42 Calculus of bile duct with acute cholecystitis without obstruction (principal); K85.10 Biliary acute pancreatitis without necrosis or infection; K80.50 Calculus of bile duct without cholangitis or cholecystitis without obstruction; Z79.85 Long-term (current) use of injectable non-insulin antidiabetic drugs; Z88.2 Allergy status to sulfonamides; R74.01 Elevation of levels of liver transaminase levels
CPT/HCPCS: 36415; 74177; 76705; 80053; 80061; 80074; 81001; 82248; 82977; 83690; 83735; 84484; 84703; 85025; 86803; 87086; 87389; 93005; 99291; J1885; J2270; J2405; J2543; J7120; Q9967

== ENCOUNTER 2024-08-03 10:32 | Outpatient (CLI) | payer BC, SELFPAY ==
[2024-08-03 11:02] VITALS: BMI 28.1
[2024-08-03 11:16] LABS: Urine Pregnancy, HCG Qual. Negative (Negative)
== END 2024-08-03 23:59 | disposition home or self-care (01) ==
LOC: PREOP 10:33
PROVIDERS: PCP Nurse Practitioner Family; Visit Provider Surgery
DX: Z01.812 Encounter for preprocedural laboratory examination (principal)
CPT/HCPCS: 81025

== ENCOUNTER 2024-08-07 09:02 | Day surgery (SDC) | payer BC, SELFPAY ==
[2024-08-03 10:50] VITALS: BMI 28.1
[2024-08-07] VITALS (9 sets, daily range): BP systolic 111–132; BP diastolic 70–86; PULSE 72–87; RESP 16–18; TEMP 36.3–36.9; O2SAT 96–100
--- NOTE | 2024-08-07 | FL_ITS ---
FINAL REPORT TECHNIQUE: Fluoroscopic spot imaging was obtained during cholangiogram. CLINICAL HISTORY: cholecystectomy with cholangiogram 4.61 dap 0.28 fluoro FINDINGS: 2 fluoroscopic spot images were obtained. No gross filling defect is seen in the common duct. 0.28 seconds of fluoroscopy time was reported. IMPRESSION: Fluoroscopy for cholangiogram. Reviewed, Interpreted and Dictated by Kelly Pelletier MD Transcribed by Arlene Pruett Authenticated and . [facility]
[2024-08-07] MEDS: LACTATED RINGERS 1000ML 1,000 ML 25 ML IV (10:14)
--- NOTE | 2024-08-07 10:16 | P.PNANES_ITS ---
[facility] Disclaimer: The information contained in this section may have been updated after the patient was seen, as this information can be updated by other users. Medical History Urinary tract infection Hypertension Surgical History S/P endometrial ablation History of tubal ligation History of section Family History Grandfather Throat cancer Social History (Updated 08/07/24 @ 09:46 by Tracey Correia RN) Smoking Status: Never smoker alcohol intake: never substance use type: denies use current occupational status: employed Travel in the last 8 weeks?: None [facility] Anesthesia Checklist Patient Identification Patient Identification: Arm Band and Verbal (Name & ) Structural Data Admitted From: Home Planned Operative Procedure/s: Laparoscopic cholecystectomy Verified Documents: Surgical Consent NPO Status Verified Time NPO: 00:00 Chart Verification Results Verified: HCG Additional verifications Patient : No Anesthesia Reactions: No Hx Blood Transfusions: No Blood Transfusion Reaction: No Airway Assessment Mallampati Score:: Class II C-Spine Mobility Assessed: Yes TMJ Mobility Assessed: Yes Dentition: Good Dentition Neurological Assessment Level of Consciousness: Awake, Alert and Appropriate Hx Seizures: No Numbness or tingling in extremities: No Anesthesia Plan Anesthesia Plan: Verified ASA Class: I Anesthesia Type: General
[2024-08-07] MEDS: CEFAZOLIN SODIUM 2 GM in 0.9 % SODIUM CHLORIDE 100 ML IV (11:00)
[2024-08-07] MEDS: ROPIVACAINE 0.5% 30ML VIAL 150 MG (11:26)
[2024-08-07] MEDS: LIDOCAINE 1% 20ML MDV 20 ML (11:26)
--- NOTE | 2024-08-07 12:48 | EXP.OP.NOTE ---
Date of procedure: 08/07/24 Pre-op Diagnosis:: Gallstone pancreatitis Post-op Diagnosis:: Same Procedure performed:: Laparoscopic cholecystectomy with intraoperative cholangiogram Surgeon:: Raza Spears MD FL[employer] SPECIALIST:: Arcadio Candelaria Anesthesia: ARMINDA Estimated blood loss (mL): 20 Clinical Note:: Patient presents for cholecystectomy with cholangiogram. She had a recent short inpatient stay for biliary pancreatitis. She is a 34-year-old female who presented to the emergency department on 07/30/2024 with right upper quadrant abdominal pain beginning about a week and a half prior. It was somewhat waxing and waning only to recur significantly on 07/29/2024. She therefore presented to the emergency department. Evaluation in the emergency department revealed elevated AST of 614, ALT 576, alkaline phosphatase 180, bilirubin 1.8, lipase 14,447. She had a CT scan which revealed distended gallbladder with pericholecystic fluid. Also there was some edema of the pancreas consistent with pancreatitis. [id number]-fz-powq ultrasound revealed possible 10 mm common bile duct. General surgery consultation was ordered for the patient to be seen in the morning of 07/31/2024. She was seen by both general surgery and gastroenterology. Due to the patient's rapid clinical improvement and rapidly trending down liver chemistries she did not require MRCP or ERCP. She did undergo dedicated gallbladder ultrasound which revealed multiple gallstones with mild gallbladder wall thickening with no evidence of any biliary ductal dilatation. SShe has continued to do well and is asymptomatic. She is tolerating a limited diet. Plan was made for early interval cholecystectomy with possible cholangiogram to prevent recurrent pancreatitis. Operative findings:: She had mild fatty infiltration of the liver. She has slightly thickened gallbladder with small gallstones. Cholangiogram revealed normal filling of the cystic duct and common bile duct with no filling defect or obstruction. Complete filling of the common hepatic duct was not achievable due to rapid emptying of contrast into the small bowel. Operative note:: Consent was obtained patient was taken the operating room. She was given preoperative intravenous antibiotics. In the operating room she was placed in a supine position. General anesthesia was induced via endotracheal tube. Abdomen was prepped and draped in the standard surgical fashion. Subumbilical skin incision was made and while performing abdominal wall lift Veress needle was inserted. CO2 pneumoperitoneum was achieved to 15 mmHg. 11 mm optical trocar was inserted at the umbilicus. Intraperitoneal contents were visualized. She was positioned in reverse Trendelenburg left side down. A couple 5 mm trocars were inserted in the right upper abdomen. 11 mm trocar was inserted in the epigastrium. Gallbladder was identified and grasped retracted anteriorly and superiorly over the dome of the liver. There were a few omental adhesions to the neck of the gallbladder. Gallbladder was somewhat distended and mildly thickened. Adhesions were taken down. Dissection was carried out bluntly incising the visceral peritoneum. Full dissection was carried out with limited use of electrocautery clearly identifying the cystic duct and cystic artery and the critical view of safety. Cystic duct was clipped proximal to the gallbladder. 3 about a 2 mm incision in the right subcostal area taut cholangiocatheter introducer was inserted. Small incision was made in the cystic duct. There was visualized bile. Cholangiocatheter was manipulated into the cystic duct and secured with a Hemoclip. Intraoperative cholangiogram was performed with fluoroscopy. There appeared to be normal filling with no obstruction or defect of the cystic duct and common bile duct. There is limited filling of the common hepatic duct due to rapid emptying of bile into the small bowel. It was not felt that this was due to a common hepatic duct stone. Patient was then repositioned and cholangiocatheter was removed. Cystic duct was multiply clipped and sharply divided. Cystic artery was carefully coagulated with melanie ultrasonic harmonic logan and divided. Gallbladder was dissected free from the liver in a retrograde fashion using melanie ultrasonic harmonic logan. Gallbladder was placed within an Endo Catch retrieval device and removed from the peritoneal cavity via the umbilical trocar site. Gallbladder fossa and perihepatic space was then irrigated and aspirated until clear. Trocars were removed as CO2 pneumoperitoneum was evacuated. Fascia at the umbilicus was closed with 0 Vicryl suture. Anterior rectus fascia at the epigastric site was closed with 0 Vicryl suture. Local anesthetic was infiltrated. Skin incisions were closed with 4-0 Monocryl. The cholangiocatheter site was closed with a 5-0 fast absorbing plain gut. A couple of the sutures were placed in the medial 5 mm trocar site as well. Steri-Strips and clean dry sterile dressings were applied. Condition: stable Disposition: PACU Complications:: None immediately apparent
--- NOTE | 2024-08-07 12:56 | EXP.ANES.I ---
[facility] Anesthesia Record Part I Anesthesia Record I Intake, IV Amount: 1,200 Hydration: Adequate Estimated blood loss (mL): 10 Urine output (mL): 0 Blood Products used (#): none Blood Pressure: 118/70 SaO2: 96 Pulse Rate: 85 Airway Patency: Patent Respiratory Rate: 16 Temperature: 97.3 F Patient is:: Drowsy and Stable Stable to PACU at:: 12:50
--- NOTE | 2024-08-08 06:45 | P.PNANES_ITS ---
[facility] Anesthesia Record Part II Anesthesia Record Part II Discharge Time: 13:51 Destination: Surgical Day Care (OP Surgery) PACU nurse assessment reviewed?: Yes Patient Condition:: Good Anesthesia Complications:: None Swallowing reflex intact?: Yes Airway Patency: Patent Cyanosis?: No Blood Pressure: 132/86 SaO2: 100 Respiratory Rate: 16 Pulse Rate: 74 Temperature: 98.4 F Mental Status: Alert & Oriented Pain level:: 0 Nausea and/or vomitting:: None Intake, IV Amount: 0 Hydration: Adequate
[2024-08-08 06:47] VITALS: BP 132/86; PULSE 74; RESP 16; TEMP 36.9; O2SAT 100
== END 2024-08-07 14:00 | disposition home or self-care (01) ==
PROVIDERS: PCP Nurse Practitioner Family; Visit Provider Surgery
PROC: 0FT44ZZ Resection of Gallbladder, Percutaneous Endoscopic Approach (ICD-10-PCS; CPT 47563; principal; 2024-08-07 11:00)
DX: K80.10 Calculus of gallbladder with chronic cholecystitis without obstruction (principal); K76.0 Fatty (change of) liver, not elsewhere classified; I10 Essential (primary) hypertension; Z98.51 Tubal ligation status; Z88.2 Allergy status to sulfonamides; Z79.85 Long-term (current) use of injectable non-insulin antidiabetic drugs
CPT/HCPCS: 47563; 76000; 96374; J0690; J1100; J1885; J2003; J2250; J2405; J2704; J2795; J3010; J7120

== ENCOUNTER 2024-08-28 10:48 | Outpatient (CLI) | payer BC, SELFPAY ==
--- OUTSIDE RECORDS SUMMARY | 2024-08-28 10:52 | XMS_ITS | Patient Health Record ---
Author Organization [facility] Address [address] [facility] [address] [address] [place] [address] Care Team Providers Care Road Mechanic Name Role Phone Irma Norton Unavailable [phone] Allergies Allergen (clinical drug ingredient) Drug/Non Drug Allergy documented on EMR Reaction Allergy Type Onset Date Status BACTRIM (SULFAMETHOXAZOLE- TRIMETHOPRIM TABS) Unspecified Drug Allergy 08/10/2016 Active sulfamethoxazole / trimethoprim SULFAMETHOXAZOLE-T RIMETHOPRIM Unspecified Drug Allergy 01/24/2016 Active Reason For Referral No Information Medications Medication SIG (Take, Route, Frequency, Duration) Notes Start Date End Date Status EQ Allergy Relief 25 MG Capsule Oral; Duration: 8 Days Active Ibuprofen 600 MG Tablet Oral; Duration: 15 Days Active Cytotec 200 MCG Tablet 1 tablet Orally Night before procedure; Duration: 1 days Dx. : menorrhagia 06/21/2023 Active oxyCODONE HCl 5 MG Tablet 1 tablet po every 6 hours; Duration: 1 days 07/01/2023 Active Loratadine 10 MG Tablet TAKE 1 TABLET BY MOUTH ONCE DAILY Oral; Duration: 30 Days Active Robafen Mucus/Chest Congestion 200 MG/10ML Liquid Oral; Duration: 4 Days Active Stool Softener 100 MG Capsule Oral; Duration: 30 Days Active Social History Tobacco Use: Social History Observation Description Date Details (start date - stop date) Never Smoker NA - NA Sex Assigned At : Social History Observation Description Sex Assigned At Female Social History Sexual History: Social Info Question Answer Notes Sexual History Had sex in the past 12 months (vaginal, oral, or anal)? Yes Drugs/Alcohol: Social Info Question Answer Notes Drugs Have you used drugs other than those for medical reasons in the past 12 months? No Steroid Use Have you used anabolic (body building) st eroids? No Alcohol Screen Did you have a drink containing alcohol in the past year? Yes How often did you have a drink containing alcohol in the past year? 2 to 4 times a month (2 points) Points 2 Interpretation Negative Tobacco Use: Social Info Question Answer Notes Tobacco Use/Smoking Are you a nonsmoker Additional Details Category Social Info Options Details Miscellaneous: Sexually active: SEXUAL AC TIV: Current Caffeine: CAFFEINE USE: 0 Problems Problem Type SNOMED Code ICD Code Onset Dates Problem Status W/U Status Risk Notes Problem Excessive and frequent menstruation (202780801) Menorrhagia with regular cycle (N92.0) Active confirmed Problem Menorrhagia (finding) (588647726) Menorrhagia, premenopausal (N92.4) Active confirmed Problem Contraception care education (907578786) Sterilization consult (Z30.09) Active confirmed Problem 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) Active confirmed Problem Gestation period, 33 weeks (finding) (50675137) 33 weeks gestation of (Z3A.33) Active confirmed Problem Gestation period, 36 weeks (50956679) 36 weeks gestation of (Z3A.36) Active confirmed Problem Third trimester (76303913) Encounter for supervision of other normal , third trimester (Z34.83) Active confirmed Problem Third trimester (70845325) Encounter for supervision of normal in multigravida in third trimester (Z34.83) Active confirmed Problem History of section (383277411) Previous delivery affecting (O34.219) Active confirmed Plan Of Treatment No Information Insurance Providers Payer Name Payer Address Payer Phone Subscriber Number Group Number Insured Name Patient Relationship to Insured Coverage Start Date Coverage End Date Rosina CHASEO [address] [place] [address] [id number] Phuong Correia Self - patient is the insured Medical (General) History Surgical History Surgery Date(Month/Year) C/S-2016 c-s 2022 Hospitalization History Reason Date(Month/Year) c/s L&D
[2024-08-28 11:40] LABS: Albumin Level 4.1 g/dl (3.5-5.0); Chloride 103 mmol/L (98-107)
[2024-08-28 11:41] LABS: Potassium 4.3 mmoL/L (3.5-5.1); Sodium 140 mmol/L (136-145)
[2024-08-28 11:43] LABS: Alanine Aminotransferase 21 U/L (12-78); Alkaline Phosphatase 71 U/L (38-126); Anion Gap 13.3 mEq/L (5-15); Aspartate Amino Transferase 23 U/L (14-36); Bilirubin,Total 0.4 mg/dl (0.2-1.3); Blood Urea Nitrogen 9 mg/dl (7-17); Carbon Dioxide 28 mmol/L (22.0-30.0); Estimated Glomerular Filt Rate 116 ml/min (>60); GFR (African American) 140 ML/MIN (>60); Lipase 72 U/L (23-300)
[2024-08-28 11:44] LABS: Albumin/Globulin Ratio 1.7 (1.1-1.8); Calcium 9.4 mg/dl (8.4-10.2); Globulin 2.4 g/dL (1.3-3.2); Glucose 87 mg/dl (74-100); Total Protein,Serum 6.5 g/dl (6.3-8.2)
== END 2024-08-28 23:59 | disposition home or self-care (01) ==
LOC: LAB 10:49
PROVIDERS: PCP Nurse Practitioner Family; Visit Provider Surgery
DX: K85.10 Biliary acute pancreatitis without necrosis or infection (principal); R74.8 Abnormal levels of other serum enzymes
CPT/HCPCS: 36415; 80053; 83690